=== PATIENT | female | born 1945 | race Caucasian/White ===

== ENCOUNTER 2016-07-25 13:00 | Outpatient (RCR) ==
[2015-06-14 13:41] VITALS: BMI 21.4
--- NOTE | 2016-07-23 16:47 | RS.OPPTEV2 ---
Date of Note: 07/22/16 Visit #: 1 Date of Evaluation: 07/22/16 Payer Source: MEDICARE Date of Onset/Injury/Change in Status: 04/28/16 Treatment Diagnosis: Low back pain, left hip pain History of Condition/Mechanism of Injury:: Patient reports left low back and LE pain for a few months. She is unsure what may have caused pain. States she did work outside several weeks ago when the weather was good, pulling weeds. States that might have bothered her back. Prior Level of Function.....Patient was independent with: ADL's, Self Care, Caregiving, Ambulation/Mobility, Community Integration/Access Functional Limitations: Sleep, Self Care, ADL's, Reaching, Pushing, Pulling, Lifting, Carrying, Standing, Bending, Squatting, Ambulation, Community Access/ Integration Current Subjective/complaints:: Patient reports low back and left hip pain. States she has pain at times down the leg to the knee. Denies any tingling or numbness. She is able to lay on the left side. Reports tenderness and pain at the left anterior hip region. Treatment Side (optional): Left Medical History Medical History: Hypertension, Arthritis (shoulders and hips) Medical History Comments:: Osteoporosis Smoking Status: Current every day smoker Patient's Goals: Her goal is to get relief of left low back and LE pain. Pain Assessment - Pain Description Pain Location: left low back/hip Current Pain Intensity: 5/10 Worst Pain Intensity: 8/10 Functional Outcome Measure Oswestry LBP: 42 - G Codes & Severity Modifier G Codes & Modifier: Mobility current CK. Mobility goal CI Source of G Code score: Oswestry LBP scale Observation - Observation Posture: Forward Head, Rounded Shoulders, Decreased Lumbar Lordosis Gait - Gait Pattern Gait Comments: Patient ambulates independently, without an assistive device. She demonstrates a slow, cautious, antalgic gait, with decreased stance phase on the left LE. - ROM Lumbar Flexion: Hand reach to patellae Lumbar Spine ROM Limitations: Pain Comments: Lumbar extension is functional with reports of increased discomfort in the left Low back region. - Strength Trunk Lateral Flexion: 4 Good Trunk Rotation: 4 Good Comments: Left hip flexion and ER 4/5. All else of left hip 4+ /5. Right LE 5/ 5. - Special Tests SARINA Test: Negative Right, Positive Left SI Joint Compression: Positive Palpation Comments:: Patient reports moderate tenderness with palpation over the left SI joint. Right SI joint with slight tenderness. Reports tenderness over the left lumbar paraspinals and superior gluteal musculature. Demonstrates min-mod increased muscle guarding at the left lumbar paraspinals. Patient reports tenderness over the left ASIS and PSIS. Sensation - Sensation Comments: Patient reports less sensitivity along the left lateral thigh. All else intact. Additional Comments: Additional Comments: SLR on the left 30-35 degrees, right 45-50 degrees. - Treatment Modality: Ultrasound Parameters/Method Applied: X 10 mins @ 1.5 w/cm2 continuous over left lumbar paraspinals and left SI joint. Patient Position: Right Sidelying Interventions - Exercise/Activities/Manual Therapy Exercises/Activities: Patient instructed in HS stretch for left LE. Also advised to avoid bending straight over. Demonstrated golfer's move or squatting while holding onto something, to crab picker something from the floor. Manual Therapy: NA HOME EXERCISE PROGRAM: HS stretch, SKTC, piriformis, isometric hip flexion, isometric hip adduction, and bridging. - Charges Total Direct Minutes: 55 mins Total Treatment Time: 55 mins Procedures billed for this date of service:: JED Omer, [place] Assessment Assessment: Patient presents to therapy with a diagnosis of left sciatica. She reports pain into the left low back and LE. She exhibits tenderness over the left SI joint and general lumbar sacral region. Imbalance in HS flexibility, with left tighter. Left hip flexors and ER exhibit weakness. Positive Special Tests of SARINA's and SI joint compression. She will benefit from modalities to the left lumbosacral and SI joint region to decrease tenderness. She will also benefit from exercises of stretching, strengthening, and muscle energy techniques to address pelvis dysfunction. Patient Education: Education of diagnosis, Body/Joint mechanics, Home Exercise Program, Home Safety, Activity Modification, Education of Plan of Care Rehab Potential: Good Short Term Goals Goal #1: Patient independent and compliant with basic HEP. Goal to be met by: 08/06/16 Goal #2: Left SLR to 40 degrees. Goal to be met by: 08/06/16 Goal #3: Patient to report only minimal tenderness at left SI joint. Goal to be met by: 08/06/16 Assistant Professor Of Life Sciences Goals Goal #1: Pt knows HEP & MET to maintain level of function at D/C. Goal to be met by: 09/01/16 Goal #2: Pt to amb. community distances without gait deviation and minimal pain. Goal to be met by: 09/01/16 Goal #3: Pt able to perform light ADL's and selfcare activities w/o LB or LLE pain. Goal to be met by: 09/01/16 Goal #4: Score on Oswestry LBP scale improved to <19% impairment. Goal to be met by: 09/01/16 Plan - Treatment to be Provided Procedures: Therapeutic Exercises, Therapeutic Activity, Manual Therapy, Patient Education Modalities: Electrical Stimulation, Ultrasound/Phonophoresis, Cryotherapy, Hot Packs - Treatment Plan Frequency: 3 X week Duration: 4 weeks ORDER # VISITS AND/OR THROUGH DATE: 09/01/16 - Treatment Code (1) Low back pain Qualifiers: Chronicity: acute Back pain laterality: left Sciatica presence: with sciatica presence unspecified Qualified Description: Acute left-sided low back pain, with sciatica presence unspecified Qualifier Code(s): ( M54.5) Low back pain (2) Sacroiliac inflammation Comments: M46.1
--- NOTE | 2016-07-24 11:16 | RS.CXNS ---
Date of scheduled appointment: 07/24/16 Type: No Show
--- NOTE | 2016-07-25 16:20 | RS.OPPTDN ---
Subjective Date of Note: 07/25/16 Visit #: 2 Date of Evaluation: 07/22/16 Payer Source: MEDICARE Treatment Diagnosis: Low back pain, left hip pain Current Subjective/complaints:: Patient says she can't tell a difference with her first treatment. She says she is hurting more due to rain. Reports pain to the L low back and hip. She says she has lost her HEP and requests another copy. Pain Assessment - Pain Description Pain Location: left low back/hip Current Pain Intensity: 5/10 - Treatment Modality: Ultrasound Parameters/Method Applied: continuous @ 1.5 w/cm2 x 10 mins to L lumbar paraspinals. Patient Position: Right Sidelying - Heat/Cryotherapy Treatment: Hot Pack (mid to low back and to the L hip in sidelying x 15 mins) Interventions - Exercise/Activities/Manual Therapy Exercises/Activities: Patient receives passive stretching of SKTC, HS, Piriformis, Lower trunk rotation. Patient performs: pillow squeezes, isometric hip flexion/abd x 10. Re-copied exercises that was given at al Total minutes of Exercise: 15 Manual Therapy: NA HOME EXERCISE PROGRAM: HS stretch, SKTC, piriformis, isometric hip flexion, isometric hip adduction, and bridging. - Charges Total Direct Minutes: 25 Total Treatment Time: 45 Procedures billed for this date of service:: hp, u/s, ex Assessment: Patient has pain and tightness to the L low back, which u/s seemed to relieve today. She has mild discomfort during stretches today, but should improve with further treatments. Patient Education: Education of diagnosis, Body/Joint mechanics, Home Exercise Program, Home Safety, Activity Modification, Education of Plan of Care Short Term Goals Goal #1: Patient independent and compliant with basic HEP. Goal to be met by: 08/06/16 Goal #2: Left SLR to 40 degrees. Goal to be met by: 08/06/16 Goal #3: Patient to report only minimal tenderness at left SI joint. Goal to be met by: 08/06/16 Skilled Nursing Goals Goal #1: Pt knows HEP & MET to maintain level of function at D/C. Goal to be met by: 09/01/16 Goal #2: Pt to amb. community distances without gait deviation and minimal pain. Goal to be met by: 09/01/16 Goal #3: Pt able to perform light ADL's and selfcare activities w/o LB or LLE pain. Goal to be met by: 09/01/16 Goal #4: Score on Oswestry LBP scale improved to <19% impairment. Goal to be met by: 09/01/16 Plan PLAN OF CARE EXPIRES ON:: 09/01/16 ORDER # VISITS AND/OR THROUGH DATE: 09/01/16 PLAN: Continue Plan of Care
== END 2016-07-26 ==
PROVIDERS: ATTEND Internal Medicine
DX: M54.32 Sciatica, left side (principal)

== ENCOUNTER 2016-08-15 11:00 | Outpatient (RCR) ==
[2015-06-14 13:41] VITALS: BMI 21.4
--- NOTE | 2016-07-29 14:34 | RS.OPPTDN ---
Subjective Date of Note: 07/29/16 Visit #: 3 Date of Evaluation: 07/22/16 Payer Source: MEDICARE Treatment Diagnosis: Low back pain, left hip pain Current Subjective/complaints:: Patient says she felt sick this morning and nearly cancelled, but also knew her back was bothering her as well. She says treatment seems to be helping. Pain Assessment - Pain Description Pain Location: left low back/hip Current Pain Intensity: 4/10 - Treatment Modality: Ultrasound Parameters/Method Applied: 1.5 w/cm2 continuous x 12 mins Treatment Area: L lumbar paraspinals and SI Patient Position: Right Sidelying - Heat/Cryotherapy Treatment: Hot Pack (L lumbar and SI region in sidelying x 20 mins) Interventions - Exercise/Activities/Manual Therapy Exercises/Activities: Patient performs general trunk stability instead of stretching due to stomach upset. Pillow squeezes, isometric hip abd, isometric hip flexion, bridging 2/10. Total minutes of Exercise: 15 Manual Therapy: NA HOME EXERCISE PROGRAM: HS stretch, SKTC, piriformis, isometric hip flexion, isometric hip adduction, and bridging. - Charges Total Direct Minutes: 25 Total Treatment Time: 45 Procedures billed for this date of service:: hp, u/s, ex Assessment: Patient presents nauseated today. Some tenderness noted with u/s today. She is able to cyndi gentle trunk stability exercises and verbalized feeling better in general and in her back following treatment today. Patient Education: Education of diagnosis, Body/Joint mechanics, Home Exercise Program, Home Safety, Activity Modification, Education of Plan of Care Patient demonstrates compliance with HEP?: Yes Short Term Goals Goal #1: Patient independent and compliant with basic HEP. Goal to be met by: 08/06/16 Progress towards Goal:: Progressing Goal #2: Left SLR to 40 degrees. Goal to be met by: 08/06/16 Progress towards Goal:: Progressing Goal #3: Patient to report only minimal tenderness at left SI joint. Goal to be met by: 08/06/16 Half-Way Goals Goal #1: Pt knows HEP & MET to maintain level of function at D/C. Goal to be met by: 09/01/16 Goal #2: Pt to amb. community distances without gait deviation and minimal pain. Goal to be met by: 09/01/16 Goal #3: Pt able to perform light ADL's and selfcare activities w/o LB or LLE pain. Goal to be met by: 09/01/16 Goal #4: Score on Oswestry LBP scale improved to <19% impairment. Goal to be met by: 09/01/16 Plan PLAN OF CARE EXPIRES ON:: 09/01/16 ORDER # VISITS AND/OR THROUGH DATE: 09/01/16 PLAN: Progress Exercises
--- NOTE | 2016-07-31 16:04 | RS.OPPTDN ---
Subjective Date of Note: 07/31/16 Visit #: 4 Date of Evaluation: 07/22/16 Payer Source: MEDICARE Treatment Diagnosis: Low back pain, left hip pain Current Subjective/complaints:: Patient states she is feeling better today, but c/o L sided hip soreness (pointing to illiopsoas near origin). She said she feels better after her session. Pain Assessment - Pain Description Pain Location: left low back/hip Current Pain Intensity: 10 - Treatment Modality: Ultrasound Parameters/Method Applied: continuous @ 1.5 w/cm2 x 12 mins bilateral lumbar paraspinals Patient Position: Right Sidelying - Heat/Cryotherapy Treatment: Hot Pack (20 mins to the low back and over the L hip in sidelying) Interventions - Exercise/Activities/Manual Therapy Exercises/Activities: Patient receives passive stretching bilaterally of SKTC, Piriformis, Trunk rotation, and HS x 3. She performs general trunk stability of pillow squeezes, bridging, isometric hip flexion/abd 2x10. Total minutes of Exercise: 16 Manual Therapy: NA HOME EXERCISE PROGRAM: HS stretch, SKTC, piriformis, isometric hip flexion, isometric hip adduction, and bridging. - Charges Total Direct Minutes: 26 Total Treatment Time: 41 Procedures billed for this date of service:: hp, u/s, ex Assessment: Patient verbalizes relief that lasts into the next day currently. The pain she describes and indicates is soreness (muscular probably) near the L groin or (proximal) illiopsoas. She is cyndi all therex easier than when she first began PT. Gait into the department is shortened stride and she uses arms for bal and does have difficulty maneuvering for bed mobility. Patient Education: Education of diagnosis, Body/Joint mechanics, Home Exercise Program, Home Safety, Activity Modification, Education of Plan of Care Patient demonstrates compliance with HEP?: Yes Short Term Goals Goal #1: Patient independent and compliant with basic HEP. Goal to be met by: 08/06/16 Progress towards Goal:: Progressing Goal #2: Left SLR to 40 degrees. Goal to be met by: 08/06/16 Progress towards Goal:: Progressing Goal #3: Patient to report only minimal tenderness at left SI joint. Goal to be met by: 08/06/16 [employer] Operator Goals Goal #1: Pt knows HEP & MET to maintain level of function at D/C. Goal to be met by: 09/01/16 Goal #2: Pt to amb. community distances without gait deviation and minimal pain. Goal to be met by: 09/01/16 Goal #3: Pt able to perform light ADL's and selfcare activities w/o LB or LLE pain. Goal to be met by: 09/01/16 Goal #4: Score on Oswestry LBP scale improved to <19% impairment. Goal to be met by: 09/01/16 Plan PLAN OF CARE EXPIRES ON:: 09/01/16 ORDER # VISITS AND/OR THROUGH DATE: 09/01/16 PLAN: Progress Exercises
--- NOTE | 2016-08-02 16:11 | RS.OPPTDN ---
Subjective Date of Note: 08/02/16 Visit #: 5 Date of Evaluation: 07/22/16 Payer Source: MEDICARE Treatment Diagnosis: Low back pain, left hip pain Current Subjective/complaints:: Patient says her stomach has been upset and therefore has not been able to sleep well. Reports her back is feeling better though. States her hip is less tender as well. Pain Assessment - Pain Description Pain Location: left low back/hip Current Pain Intensity: 3/10 - Treatment Modality: Ultrasound Parameters/Method Applied: continuous @ 1.5 w/cm2 x 12 mins to the L lumbar paraspinals and SI region Patient Position: Right Sidelying - Heat/Cryotherapy Treatment: Hot Pack (20 mins to the mid to low back in R sidelying) Interventions - Exercise/Activities/Manual Therapy Exercises/Activities: Patient receives passive stretching bilaterally of SKTC, Piriformis, Trunk rotation, and HS x 3. She performs general trunk stability of pillow squeezes, bridging, isometric hip flexion/abd, SLR 2x10. Total minutes of Exercise: 20 Manual Therapy: NA HOME EXERCISE PROGRAM: HS stretch, SKTC, piriformis, isometric hip flexion, isometric hip adduction, and bridging. - Charges Total Direct Minutes: 32 Total Treatment Time: 52 Procedures billed for this date of service:: hp, u/s, ex Assessment: Patient progressing with reduced back pain and improved cyndi to increased stretching and stability. Patient Education: Education of diagnosis, Body/Joint mechanics, Home Exercise Program, Home Safety, Activity Modification, Education of Plan of Care Patient demonstrates compliance with HEP?: Yes Short Term Goals Goal #1: Patient independent and compliant with basic HEP. Goal to be met by: 08/06/16 Progress towards Goal:: Progressing Goal #2: Left SLR to 40 degrees. Goal to be met by: 08/06/16 Progress towards Goal:: Progressing Goal #3: Patient to report only minimal tenderness at left SI joint. Goal to be met by: 08/06/16 [facility] Goals Goal #1: Pt knows HEP & MET to maintain level of function at D/C. Goal to be met by: 09/01/16 Goal #2: Pt to amb. community distances without gait deviation and minimal pain. Goal to be met by: 09/01/16 Goal #3: Pt able to perform light ADL's and selfcare activities w/o LB or LLE pain. Goal to be met by: 09/01/16 Goal #4: Score on Oswestry LBP scale improved to <19% impairment. Goal to be met by: 09/01/16 Plan PLAN OF CARE EXPIRES ON:: 09/01/16 ORDER # VISITS AND/OR THROUGH DATE: 09/01/16 PLAN: Progress Exercises
--- NOTE | 2016-08-05 14:26 | RS.OPPTDN ---
Subjective Date of Note: 08/05/16 Visit #: 6 Date of Evaluation: 07/22/16 Payer Source: MEDICARE Treatment Diagnosis: Low back pain, left hip pain Current Subjective/complaints:: Patient says her pain is more today. She says she is hurting when she walks. Reports she had to walk around and be in her yard a lot over the weekend due to showing someone how and where to mow her yard. She also c/o R shoulder pain in which she verbalizes history of as well as limited motion. Pain Assessment - Pain Description Pain Location: left low back/hip Current Pain Intensity: elevated today - Treatment Modality: Ultrasound Parameters/Method Applied: continuous @ 1.5 w/cm2 x 12 mins to the L lumbar paraspinals and into the hip and SI region Patient Position: Right Sidelying - Heat/Cryotherapy Treatment: Hot Pack (over the low back and hip in sidelying) Interventions - Exercise/Activities/Manual Therapy Exercises/Activities: Patient receives passive stretching bilaterally of SKTC, Piriformis, Trunk rotation, and HS x 4. She performs general trunk stability of pillow squeezes, bridging, isometric hip flexion/abd, SLR 2x10. Total minutes of Exercise: 22 Manual Therapy: NA HOME EXERCISE PROGRAM: HS stretch, SKTC, piriformis, isometric hip flexion, isometric hip adduction, and bridging. - Charges Total Direct Minutes: 34 Total Treatment Time: 54 Procedures billed for this date of service:: hp, u/s, ex Assessment: Patient expresses her pain was already relieved significantly once u /s was completed and she was mid way through stretching. She appears to ambulate with increased stride length to the L LE. Patient Education: Education of diagnosis, Body/Joint mechanics, Home Exercise Program, Home Safety, Activity Modification, Education of Plan of Care Patient demonstrates compliance with HEP?: Yes Short Term Goals Goal #1: Patient independent and compliant with basic HEP. Goal to be met by: 08/06/16 Progress towards Goal:: Progressing Goal #2: Left SLR to 40 degrees. Goal to be met by: 08/06/16 Progress towards Goal:: Progressing Goal #3: Patient to report only minimal tenderness at left SI joint. Goal to be met by: 08/06/16 Longterm Goals Goal #1: Pt knows HEP & MET to maintain level of function at D/C. Goal to be met by: 09/01/16 Goal #2: Pt to amb. community distances without gait deviation and minimal pain. Goal to be met by: 09/01/16 Goal #3: Pt able to perform light ADL's and selfcare activities w/o LB or LLE pain. Goal to be met by: 09/01/16 Goal #4: Score on Oswestry LBP scale improved to <19% impairment. Goal to be met by: 09/01/16 Plan PLAN OF CARE EXPIRES ON:: 09/01/16 ORDER # VISITS AND/OR THROUGH DATE: 09/01/16 PLAN: Progress Exercises
--- NOTE | 2016-08-07 15:34 | RS.OPPTDN ---
Subjective Date of Note: 08/07/16 Visit #: 7 Date of Evaluation: 07/22/16 Payer Source: MEDICARE Treatment Diagnosis: Low back pain, left hip pain Current Subjective/complaints:: Patient says she has elevated pain today. Reports L hip pain with ambulation and standing. She says she thinks she will have this pain forever. Pain Assessment - Pain Description Pain Location: left low back/hip Current Pain Intensity: elevated today - Treatment Modality: Ultrasound Parameters/Method Applied: continuous @ 1.5 w/cm2 x 12 mins to the L lumbar paraspinals and L hip Patient Position: Right Sidelying - Heat/Cryotherapy Treatment: Hot Pack (low back and over the L hip in sidelying x 20) Interventions - Exercise/Activities/Manual Therapy Exercises/Activities: Patient receives passive stretching bilaterally of SKTC, Piriformis, Trunk rotation, and HS x 4. She performs general trunk stability of pillow squeezes, bridging, isometric hip flexion/abd, QS, SLR 2x10. Total minutes of Exercise: 22 Manual Therapy: NA HOME EXERCISE PROGRAM: HS stretch, SKTC, piriformis, isometric hip flexion, isometric hip adduction, and bridging. - Charges Total Direct Minutes: 34 Total Treatment Time: 49 Procedures billed for this date of service:: hp, u/s, ex Assessment: Patient with slower, guarded gait today related to increased L hip pain. She admits relief (temporary) with treatment today. She is discouraged about her chronic pain and that relief is not lasting very long. Patient Education: Education of diagnosis, Body/Joint mechanics, Home Exercise Program, Home Safety, Activity Modification, Education of Plan of Care Patient demonstrates compliance with HEP?: Yes Short Term Goals Goal #1: Patient independent and compliant with basic HEP. Goal to be met by: 08/06/16 Progress towards Goal:: Progressing Goal #2: Left SLR to 40 degrees. Goal to be met by: 08/06/16 Progress towards Goal:: Progressing Goal #3: Patient to report only minimal tenderness at left SI joint. Goal to be met by: 08/06/16 Wound/Ostomy Clinical Nurse Specialist Goals Goal #1: Pt knows HEP & MET to maintain level of function at D/C. Goal to be met by: 09/01/16 Goal #2: Pt to amb. community distances without gait deviation and minimal pain. Goal to be met by: 09/01/16 Goal #3: Pt able to perform light ADL's and selfcare activities w/o LB or LLE pain. Goal to be met by: 09/01/16 Goal #4: Score on Oswestry LBP scale improved to <19% impairment. Goal to be met by: 09/01/16 Plan PLAN OF CARE EXPIRES ON:: 09/01/16 ORDER # VISITS AND/OR THROUGH DATE: 09/01/16 PLAN: Progress Exercises (may modify treatment to estim)
--- NOTE | 2016-08-09 15:31 | RS.OPPTDN ---
Subjective Date of Note: 08/09/16 Visit #: 8 Date of Evaluation: 07/22/16 Payer Source: MEDICARE Treatment Diagnosis: Low back pain, left hip pain Current Subjective/complaints:: Patient says her L hip is not bothering her as much as it usually does. She says she is able to walk better than norm too. She expresses concern about fixing Easter lunch (being on her feet and cooking for family). C/c R shoulder pain. Pain Assessment - Pain Description Pain Location: left low back/hip Current Pain Intensity: less today - Treatment Modality: Ultrasound Parameters/Method Applied: continuous @ 1.5 w/cm2 x 8 mins to the L lumbar paraspinals and hip Patient Position: Supine - Heat/Cryotherapy Treatment: Hot Pack (mid to low back in supine to spare shoulder pain) Interventions - Exercise/Activities/Manual Therapy Exercises/Activities: Patient receives passive stretching bilaterally of SKTC, Piriformis, Trunk rotation, and HS x 4. She performs general trunk stability of pillow squeezes, bridging, isometric hip flexion/abd, QS, SLR 2x10. Total minutes of Exercise: 22 Manual Therapy: NA HOME EXERCISE PROGRAM: HS stretch, SKTC, piriformis, isometric hip flexion, isometric hip adduction, and bridging. - Charges Total Direct Minutes: 30 Total Treatment Time: 50 Procedures billed for this date of service:: hp, u/s, ex Assessment: Reduced L sided back and hip pain today thus, presenting with improved ambulation and longer stride length for the L LE. C/c at this point is R shoulder pain. Patient Education: Education of diagnosis, Body/Joint mechanics, Home Exercise Program, Home Safety, Activity Modification, Education of Plan of Care Patient demonstrates compliance with HEP?: Yes Short Term Goals Goal #1: Patient independent and compliant with basic HEP. Goal to be met by: 08/06/16 Progress towards Goal:: Progressing Goal #2: Left SLR to 40 degrees. Goal to be met by: 08/06/16 Progress towards Goal:: Progressing Goal #3: Patient to report only minimal tenderness at left SI joint. Goal to be met by: 08/06/16 Personal Trainer Goals Goal #1: Pt knows HEP & MET to maintain level of function at D/C. Goal to be met by: 09/01/16 Goal #2: Pt to amb. community distances without gait deviation and minimal pain. Goal to be met by: 09/01/16 Goal #3: Pt able to perform light ADL's and selfcare activities w/o LB or LLE pain. Goal to be met by: 09/01/16 Goal #4: Score on Oswestry LBP scale improved to <19% impairment. Goal to be met by: 09/01/16 Plan PLAN OF CARE EXPIRES ON:: 09/01/16 ORDER # VISITS AND/OR THROUGH DATE: 09/01/16 PLAN: Progress Exercises (continue x 2 more sessions)
--- NOTE | 2016-08-13 15:53 | RS.OPPTDN ---
Subjective Date of Note: 08/13/16 Visit #: 9 Date of Evaluation: 07/22/16 Payer Source: MEDICARE Treatment Diagnosis: Low back pain, left hip pain Current Subjective/complaints:: Patient says most of her problems now are dizziness. She says her hip and back pain is not too bad. Says it was a problem though with meal prep for Easter. She said she did not have help from family as she anticipated, so her back pain was elevated. Pain Assessment - Pain Description Pain Location: left low back/hip Current Pain Intensity: less today - Treatment Modality: Ultrasound Parameters/Method Applied: continuous @ 1.5 w/cm2 x 10 mins to the L lumbar paraspinals and SI Patient Position: Right Sidelying - Heat/Cryotherapy Treatment: Hot Pack (over the low back and L hip in sidelying x 20 mins) Interventions - Exercise/Activities/Manual Therapy Exercises/Activities: Patient receives passive stretching bilaterally of SKTC, Piriformis, Trunk rotation, and HS x 4. She continues to perform general trunk stability of pillow squeezes, bridging, isometric hip flexion/abd, QS, SLR 2x10. Total minutes of Exercise: 16 Manual Therapy: NA HOME EXERCISE PROGRAM: HS stretch, SKTC, piriformis, isometric hip flexion, isometric hip adduction, and bridging. - Charges Total Direct Minutes: 26 Total Treatment Time: 46 Procedures billed for this date of service:: hp, u/s, ex Assessment: Improved flexibility and back and hip pain. She still has trouble with cyndi prolonged standing and had elevated pain with meal prep. Patient Education: Education of diagnosis, Body/Joint mechanics, Home Exercise Program, Home Safety, Activity Modification, Education of Plan of Care Patient demonstrates compliance with HEP?: Yes Short Term Goals Goal #1: Patient independent and compliant with basic HEP. Goal to be met by: 08/06/16 Progress towards Goal:: Progressing Goal #2: Left SLR to 40 degrees. Goal to be met by: 08/06/16 Progress towards Goal:: Met Goal #3: Patient to report only minimal tenderness at left SI joint. Goal to be met by: 08/06/16 Progress towards Goal:: Met Group Home Goals Goal #1: Pt knows HEP & MET to maintain level of function at D/C. Goal to be met by: 09/01/16 Progress towards goal: Progressing Goal #2: Pt to amb. community distances without gait deviation and minimal pain. Goal to be met by: 09/01/16 Progress towards goal: Progressing Goal #3: Pt able to perform light ADL's and selfcare activities w/o LB or LLE pain. Goal to be met by: 09/01/16 Progress towards goal: Progressing Goal #4: Score on Oswestry LBP scale improved to <19% impairment. Goal to be met by: 09/01/16 Plan PLAN OF CARE EXPIRES ON:: 09/01/16 ORDER # VISITS AND/OR THROUGH DATE: 09/01/16 PLAN: Progress Exercises
--- NOTE | 2016-08-16 15:31 | RS.OPPTDC ---
Date of Discharge: 08/15/16 Date of Evaluation: 07/22/16 Number of Visits: 10 Treatment Diagnosis: Low back pain, left hip pain Current Complaints/Gains: Patient reports right shoulder is her chief complaint at this time. States back pain is much better, except with increased activities. States preparing Easter meal recently caused increased back pain. Reports improved strength in LE's. She returns to her physician on August 26. Functional Outcome Measure Oswestry LBP: 4 - G Codes & Severity Modifier G Codes & Modifier: Mobility D/C CI. Mobility goal CI Source of G Code score: Oswestry LBP Interventions - Exercise/Activities/Manual Therapy Exercises/Activities: NA Manual Therapy: NA HOME EXERCISE PROGRAM: HS stretch, SKTC, piriformis, isometric hip flexion, isometric hip adduction, and bridging. - Objective Findings Observations,measurements,etc.: Patient demonstrates improved left HS flexibilty , but remains tighter than right. Demonstrates continues to present short stride length, but this has improved somewhat since her first visit. - Charges Total Direct Minutes: NA Total Treatment Time: NA Procedures billed for this date of service:: NA Assessment Assessment: Patient reports improved back pain unless increased activity. She demonstrates improvement per Oswestry LBP scale. She shows improvement with LE flexibility. She agrees she probably has met her maximum potential at this time. She understands to continue with exercises at home. Short Term Goals Goal #1: Patient independent and compliant with basic HEP. Goal to be met by: 08/06/16 Progress towards Goal:: Met Goal #2: Left SLR to 40 degrees. Goal to be met by: 08/06/16 Progress towards Goal:: Met Goal #3: Patient to report only minimal tenderness at left SI joint. Goal to be met by: 08/06/16 Progress towards Goal:: Met Longterm Goals Goal #1: Pt knows HEP & MET to maintain level of function at D/C. Goal to be met by: 09/01/16 Progress towards goal: Met Goal #2: Pt to amb. community distances without gait deviation and minimal pain. Goal to be met by: 09/01/16 Progress towards goal: Partially Met Goal #3: Pt able to perform light ADL's and selfcare activities w/o LB or LLE pain. Goal to be met by: 09/01/16 Progress towards goal: Partially Met Goal #4: Score on Oswestry LBP scale improved to <19% impairment. Goal to be met by: 09/01/16 Progress towards goal: Met Plan Reason for Discharge:: Maximum Potential Met
== END 2016-08-25 ==
PROVIDERS: ATTEND Internal Medicine
DX: M54.32 Sciatica, left side (principal)

== ENCOUNTER 2016-09-16 10:02 | Outpatient (CLI) ==
[2015-06-14 13:41] VITALS: BMI 21.4
[2016-09-16 10:14] VITALS: BP 126/70; TEMP 97.7
[2016-09-16] MEDS ORDERED: PROLIA SUBCUT STA (10:14)
== END 2016-09-16 10:03 | disposition home or self-care (01) ==
LOC: OPMED 10:02
PROVIDERS: ATTEND Internal Medicine
DX: M81.0 Age-related osteoporosis without current pathological fracture (principal)
CPT/HCPCS: 96372

== ENCOUNTER 2017-03-25 09:19 | Outpatient (CLI) ==
[2015-06-14 13:41] VITALS: BMI 21.4
[2017-03-25 10:21] LABS: CREATININE 0.97 mg/dL (0.60-1.30)
[2017-03-25 10:26] VITALS: BP 134/72; TEMP 98.6
[2017-03-25] MEDS ORDERED: PROLIA SUBCUT STA (10:26)
--- NOTE | 2017-03-25 13:12 | MRI ---
EXAM: MRI brain without and with IV contrast. DATE: 25 March 2017. HISTORY: Dizziness. TECHNIQUE: Sagittal T1W postcontrast, axial T2W, axial FLAIR, axial T1W pre and postcontrast, axial DWI, coronal T1W postcontrast, and coronal T2W GRE sequences of the brain were obtained using 1.5 Caitlin la magnet. CONTRAST: Omniscan - 10 ml IV. COMPARISON: CT head 06/14/2015. MRI brain 28 November 2014. FINDINGS: The ventricles, cisterns, and sulci are commensurately enlarged due to involutional change . No midline shift, mass effect or abnormal extra-axial fluid collection is apparent. No acute infa rct, hemorrhage or enhancing neoplasm is identified. No abnormal contrast enhancement is identified in the brain, meninges or dura. Small, confluent rim of T2W/FLAIR hyperintensity is observed in the white matter abutting each lateral ventricle. Small number of 2-8 mm diameter, T2W/FLAIR bright, non -enhancing foci are scattered within the major radiata, centrum semiovale and subcortical white ana er bilaterally. The harrell - white matter differentiation is normal. No brainstem abnormality is dete cted. No migration or diverticulation abnormality is identified. The amygdala, hippocampus, and par ahippocampal gyri are similar bilaterally. The 7th/8th cranial nerve complexes, cerebellopontine ang les, and visible cervical spinal cord are normal. There is no cerebellar tonsillar ectopia. The pit uitary gland is normal in size and signal. Corpus callosum is normal in size and configuration. Jaun w voids are present in the major intracranial arteries and in the dural venous sinuses. No aneurysm, AVM or dural venous sinus thrombosis is apparent. No orbit abnormality is identified. The mastoid air cells are unremarkable. There is no acute sinusitis. No neck mass or lymphadenopathy is detecte d. No calvarial neoplasm or acute fracture is evident. Posterior disc/osteophyte complexes at C3-4 and C4-5 appear to cause mild C3-4 and moderate C4-5 central canal stenoses. IMPRESSIONS: 1. No acute infarct, hemorrhage, mass or hydrocephalus. 2. Mild supratentorial small vessel disease. 3. Mild cerebral and cerebellar atrophy.
--- NOTE | 2017-03-25 13:22 | US ---
EXAM: Bilateral carotid artery Doppler History: Dizziness. Technique: Multiple sonographic images through the bilateral internal carotid arteries were obtained . Color duplex Doppler was used to interrogate vascular flow. Findings: The right ICA peak systolic velocity is within normal limits measuring month 1.2 cm/sec. The right I CA/cca PSV ratio is normal at 1.7. The right vertebral artery is patent and demonstrates antegrade f low. Munguia scale images demonstrate mild to moderate plaque buildup within the right internal carotid artery. The left ICA peak systolic velocity is moderately elevated measuring 1.4 meters per second. The left ICA/cca PSV ratio is moderately increased at 2.1. The left vertebral artery is patent and demonstrat es antegrade flow. Munguia scale images demonstrate moderate plaque buildup within the proximal left in ternal carotid artery. Impression: 1. No significant hemodynamic stenosis of the right internal carotid artery. 2. Moderate, 50-69% hemodynamic stenosis of the left internal carotid artery
== END 2017-03-25 09:20 | disposition home or self-care (01) ==
LOC: OPMED 09:19
PROVIDERS: ATTEND Internal Medicine
DX: M81.0 Age-related osteoporosis without current pathological fracture (principal); R42 Dizziness and giddiness; R26.81 Unsteadiness on feet
CPT/HCPCS: 36415; 82565; 96372

== ENCOUNTER → 2017-04-02 | Outpatient (POV) ==
[2015-06-14 13:41] VITALS: BMI 21.4
== END ==
LOC: OUTPT 00:01
PROVIDERS: ATTEND Otolaryngology
DX: R42 Dizziness and giddiness (principal); H91.90 Unspecified hearing loss, unspecified ear
CPT/HCPCS: 92557; 92567

== ENCOUNTER 2017-09-23 11:00 | Outpatient (RCR) ==
[2015-06-14 13:41] VITALS: BMI 21.4
--- NOTE | 2017-09-09 08:59 | RS.OPPTEV2 ---
Date of Note: 09/08/17 Visit #: 1 Date of Evaluation: 09/08/17 Payer Source: MEDICARE Treatment Diagnosis: Right low back pain/sciatica, gait difficulty History of Condition/Mechanism of Injury:: Patient reports right hip/low back pain for 1-2 months. States she has had no injury. Reports difficulty with walking and balance has been progressively getting worse. States she spends a lot of time laying down because she has no energy. Prior Level of Function.....Patient was independent with: ADL's, Self Care, Caregiving, Ambulation/Mobility, Community Integration/Access Functional Limitations: Sleep, Self Care, ADL's, Reaching, Pushing, Pulling, Lifting, Carrying, Standing, Bending, Squatting, Ambulation, Community Access/ Integration Current Subjective/complaints:: Patient reports right sided hip/low back pain. States sitting very long causes increased pain and she has to reposition herself. Also reports right low back pain with prolonged standing and walking. States her sleep is interrupted at night due to having to change positions frequently. She gets some decrease in pain with use of heat. Reports she has a cane and a rollator at home, but states she does not use them. States she holds onto furniture or dominguez when she walks in her home. States she has had no falls. She denies dizziness, but later during the evaluation she reports dizziness with testing balance. She states she has medication for Vertigo, but states she does not take it. Reports her back pain and walking is worse later in the day and evening. Medical History Medical History: Hypertension, Arthritis (shoulders and hips) Medical History Comments:: Osteoporosis, Primary Biliary Cirrhosis Smoking Status: Current every day smoker Hx Home Medications: Medication list not provided, states she takes medication for acid reflux, thyroid, and liver. Recently started a Z pack. Patient's Goals: Her goal is to get reduction in right hip/low back pain and also improve her balance. Pain Assessment - Pain Description Pain Location: right low back/SI/hip Pain Description: "Like a toothache" Current Pain Intensity: 6/10 Worst Pain Intensity: 10/10 Functional Outcome Measure Oswestry LBP: 54 Tinetti: 12 (04/24=57% impairment) - G Codes & Severity Modifier G Codes & Modifier: Mobility current CK. Mobility goal CI Source of G Code score: Oswestry LBP scale and Tinetti Assessment Observation - Observation Inspection: Patient presents to the department holding onto to the arm of her daughter. Bilateral lower legs and ankles are much cooler to the touch and demonstrate slightly darker appearance compared to other exposed areas of the body. Posture: Forward Head, Rounded Shoulders, Decreased Lumbar Lordosis Gait - Gait Pattern Gait Comments: Patient ambulates without an assistive device. She requires CATERING ADMINISTRATIVE ASSISTANT of one for safety. She exhibits moderate deviation from a straight path, decreased stance phase on the right LE and decreased stride of the right LE. Once into the treatment room, Ms. Nunez reaches for the wall and the treatment table to steady her. Patient demonstrates transfers to/from sitting independent , unless from a lower surface. She requires minimal assistance transferring sit to stand from a low surface. - ROM Lumbar Flexion: Hand reach to Mid-Shins Sidebending to Left: Reach to Lateral Joint Line Sidebending to Right: Reach to Lateral Joint Line Comments: Patient requires hands on assistance to perform lumbar ROM due to balance difficulty. She reports no increase in back pain with AROM. Bilateral LE AROM is WFL's. - Strength Trunk Lateral Flexion: 4- Good- Trunk Rotation: 4- Good- Comments: Bilateral hip strength 4/5, knees 4/5, ankles 4 to 4+/5. - Special Tests SARINA Test: Positive Left SLR Test: Negative Left, Negative Right Seated Dural Stretch Test: Negative Left, Negative Right SI Joint Compression: Positive Palpation Comments:: Patient reports tenderness over the right SI joint and lumbar paraspinals. Demonstrates no significant muscle guarding along the lumbar paraspinals. Sensation - Sensation Comments: Reports lower legs feel a little numb, but has difficulty explaining exact areas of numbness. Balance - Sitting Balance Static Sitting Balance: Good Dynamic Sitting Balance: Good - Standing Balance Static Standing Balance: Fair Dynamic Standing Balance: Fair (-) - Comments Balance Assessment Comments: Patient demonstrates decreased balance and reports of dizziness with static standing with eyes closed for a ~ 5 seconds. Also demonstrates decreased dynamic balance and reports dizziness with turning 360 degrees with CATERING ADMINISTRATIVE ASSISTANT. Coordination - Tests Bilateral Heel to Villarreal: Mild Deviation Additional Comments: Additional Comments: Bilateral HS are very tight: both SLR to 30-35 degrees. - Treatment Modality: Ultrasound Parameters/Method Applied: 1.5 w/cm2 X 10 mins continuous to right lumbar paraspinals and Right SI joint region. Patient Position: Left Sidelying Interventions - Exercise/Activities/Manual Therapy Exercises/Activities: NA Manual Therapy: NA HOME EXERCISE PROGRAM: None given today. - Charges Timed Code Treatment Minutes: 10 mins Total Treatment Time: 48 mins Procedures billed for this date of service:: JED [facility], EVALUATION COMPLEXITY LEVEL EVALUATION COMPLEXITY LEVEL: HISTORY: Medium (History of back pian, Primary Biliary Cirrhosis,HTN, OA), EXAM OF BODY SYSTEMS: Medium (Addressed sensation, LE ROM and strength, balance, coordination), CLINICAL PRESENTATION: Medium ( Evolving), CLINICAL DECISION MAKING: Medium Assessment Assessment: Patient presents to therapy with a diagnosis of right low back pain/ sciatica, and gait difficulty. She reports right sided low back pain with prolonged sitting, standing, and walking. She exhibits marked limitation of bilateral hamstring flexibility. She presents to be a High fall risk per Tinetti Assessment. LE strength, standing static, and standing dynamic balance are impaired. She demonstrates good potential to benefit from stretching and modalities to reduce low back pain. She also demonstrates potential to benefit from trunk and LE strengthening, along with neuromuscular activities, to improve her balance and decrease her risk for falls. Patient Education: Education of diagnosis, Body/Joint mechanics, Home Exercise Program, Home Safety, Activity Modification, Education of Plan of Care Rehab Potential: Good Short Term Goals Goal #1: Patient independent and compliant with basic HEP. Goal to be met by: 09/22/17 Goal #2: Bilateral SLR to 40 degrees. Goal to be met by: 09/22/17 Goal #3: Patient to report only minimal tenderness at right SI joint. Goal to be met by: 09/22/17 Goal #4: Pt to amb. with AAD, with good safety in department. Goal to be met by: 09/22/17 Snf Goals Goal #1: Pt knows HEP and to continue ex's to maintain functional level at D/C. Goal to be met by: 10/14/17 Goal #2: Score on Tinetti Assessment improved to , to show decreased fall risk. Goal to be met by: 10/14/17 Goal #3: Pt able to amb. community distances w/ AAD and with minimal right hip/ LBP. Goal to be met by: 10/14/17 Goal #4: Score on Oswestry LBP scale improved to <19% impairment. Goal to be met by: 10/14/17 Plan - Treatment to be Provided Procedures: Therapeutic Exercises, Therapeutic Activity, Gait Training, Neuromuscular Rehab, Manual Therapy, Patient Education Modalities: Electrical Stimulation, Ultrasound/Phonophoresis, Cryotherapy, Hot Packs - Treatment Plan Frequency: 2-3x week Duration: 4 weeks ORDER # VISITS AND/OR THROUGH DATE: 10/14/17 - Treatment Code (1) Low back pain Code(s): M54.5 - LOW BACK PAIN Qualifiers: Chronicity: acute Back pain laterality: right Sciatica presence: unspecified whether sciatica present Qualified Code(s): M54.5 - Low back pain (2) Gait difficulty Code(s): R26.9 - UNSPECIFIED ABNORMALITIES OF GAIT AND MOBILITY Comments: R26.9
--- NOTE | 2017-09-10 11:49 | RS.CXNS ---
Date of scheduled appointment: 09/10/17 Type: No Show
--- NOTE | 2017-09-12 14:55 | RS.OPPTDN ---
Subjective Date of Note: 09/12/17 Visit #: 2 Date of Evaluation: 09/08/17 Payer Source: MEDICARE Treatment Diagnosis: Right low back pain/sciatica, gait difficulty Current Subjective/complaints:: Patient C/o dizziness today. She says she is taking medication for Vertigo and does question whether her vision difficulty could be causing her dizziness. Pain Assessment - Pain Description Pain Location: sore to the R LB and SI region - Treatment Modality: Ultrasound Parameters/Method Applied: continuous @ 1.5 w/cm2 x 10 mins to the R lumbar paraspinals and SI joint Patient Position: Left Sidelying - Heat/Cryotherapy Treatment: Hot Pack (over the low back and R SI joint) Interventions - Exercise/Activities/Manual Therapy Exercises/Activities: Pt begins with passive stretching of SKTC, piriformis, fig 4, and hamstrings R LE x 4. Patient begins pillow squeezes, isometric hip flexion/abd, bridging, x 10 reps. Sitting at EOB: shoulder shrugs and scap retraction for posture x 10. Patient stands at railing for: side stepping, marching, x 10. Patient amb around the dept with SC with education of proper use and appropriate side. Adjusted cane to better height. Total minutes of Exercise: 22 Manual Therapy: NA HOME EXERCISE PROGRAM: None given today. - Charges Timed Code Treatment Minutes: 32 Total Treatment Time: 47 Procedures billed for this date of service:: hp, u/s, ex Assessment: Patient c/o dizziness today which remains fairly constant throughout changing positions and slightly with standing in our dept. She is assisted to/from waiting room and then later after appt to her car via w/c. She often reaches out to touch bed, wall, but is unsure of using SC and needs assistance with using it and appropriate side. Patient Education: Education of diagnosis, Body/Joint mechanics, Home Exercise Program, Home Safety, Education of Plan of Care Short Term Goals Goal #1: Patient independent and compliant with basic HEP. Goal to be met by: 09/22/17 Progress towards Goal:: Progressing Goal #2: Bilateral SLR to 40 degrees. Goal to be met by: 09/22/17 Goal #3: Patient to report only minimal tenderness at right SI joint. Goal to be met by: 09/22/17 Goal #4: Pt to amb. with AAD, with good safety in department. Goal to be met by: 09/22/17 Snf Goals Goal #1: Pt knows HEP and to continue ex's to maintain functional level at D/C. Goal to be met by: 10/14/17 Goal #2: Score on Tinetti Assessment improved to , to show decreased fall risk. Goal to be met by: 10/14/17 Goal #3: Pt able to amb. community distances w/ AAD and with minimal right hip/ LBP. Goal to be met by: 10/14/17 Goal #4: Score on Oswestry LBP scale improved to <19% impairment. Goal to be met by: 10/14/17 Plan PLAN OF CARE EXPIRES ON:: 10/14/17 ORDER # VISITS AND/OR THROUGH DATE: 10/14/17 PLAN: Patient to continue BIW for therex and modalities for back pain and bal
--- NOTE | 2017-09-16 13:29 | RS.OPPTDN ---
Subjective Date of Note: 09/16/17 Visit #: 3 Date of Evaluation: 09/08/17 Payer Source: MEDICARE Treatment Diagnosis: Right low back pain/sciatica, gait difficulty Current Subjective/complaints:: Patient continues to c/o dizziness. She says this has not improved with therapy yet, but did let her know she has only had 1 treatment. - Treatment Modality: Ultrasound Parameters/Method Applied: continuous @ 1.5 w/cm2 x 10 mins to the R lower lumbar paraspinals and SI joint Patient Position: Left Sidelying - Heat/Cryotherapy Treatment: Hot Pack (20 mins to the low back and across the R SI/hip in sidelying) Interventions - Exercise/Activities/Manual Therapy Exercises/Activities: Pt begins with passive stretching of SKTC, piriformis, fig 4, and hamstrings R LE x 4. Patient continues pillow squeezes, isometric hip flexion/abd, bridging, x 10 reps. Sitting at EOB: shoulder shrugs and scap retraction for posture x 10. SLR x 10 reps. Avoided standing therex due to patient saying she has not taken any of her medication today including vertigo and feeling increased unsteadiness today. Discussion about taking her meds consistently, using her SC at home and in community for safety and working on HeP. Patient was transported back to rehab room and to her car via w/c based on her c/o's. Discussed her diagnosis and POC in case we need to modify treatment from u/s to estim. Total minutes of Exercise: 22 Manual Therapy: NA HOME EXERCISE PROGRAM: None given today. - Charges Timed Code Treatment Minutes: 32 Total Treatment Time: 48 Procedures billed for this date of service:: hp, u/s, ex Assessment: Patient experiencing more unsteadiness and dizziness today. Admits that PT does not seem to be helping as she is being wheeled back in w/c. Although, later patient admits to not taking her morning medication including for dizziness and not using her cane at home. She also adds at the end of session, that her back pain is much better and can get into her car with improved ease. Patient Education: Education of diagnosis, Home Exercise Program, Home Safety, Education of Plan of Care Patient demonstrates compliance with HEP?: Yes (needs to be more consistent) Short Term Goals Goal #1: Patient independent and compliant with basic HEP. Goal to be met by: 09/22/17 Progress towards Goal:: Progressing Goal #2: Bilateral SLR to 40 degrees. Goal to be met by: 09/22/17 Progress towards Goal:: Progressing Comments:: HS length is improving Goal #3: Patient to report only minimal tenderness at right SI joint. Goal to be met by: 09/22/17 Comments:: Patient continues to be tender at the lower lumbar R paraspinals Goal #4: Pt to amb. with AAD, with good safety in department. Goal to be met by: 09/22/17 Progress towards Goal:: No Change (patient has been using w/c for transport to our dept due to increased dizziness) Intermediate Goals Goal #1: Pt knows HEP and to continue ex's to maintain functional level at D/C. Goal to be met by: 10/14/17 Progress towards goal: Progressing Goal #2: Score on Tinetti Assessment improved to 20/28, to show decreased fall risk. Goal to be met by: 10/14/17 Goal #3: Pt able to amb. community distances w/ AAD and with minimal right hip/ LBP. Goal to be met by: 10/14/17 Goal #4: Score on Oswestry LBP scale improved to <19% impairment. Goal to be met by: 10/14/17 Plan PLAN OF CARE EXPIRES ON:: 10/14/17 ORDER # VISITS AND/OR THROUGH DATE: 10/14/17 PLAN: Patient to continue BIW for advancement to therex if able
--- NOTE | 2017-09-19 11:04 | RS.CXNS ---
Date of scheduled appointment: 09/19/17 Type: Cancel Reason for Cancel/NS: sick
--- NOTE | 2017-09-23 13:25 | RS.OPPTDN ---
Subjective Date of Note: 09/23/17 Visit #: 4 Date of Evaluation: 09/08/17 Payer Source: MEDICARE Treatment Diagnosis: Right low back pain/sciatica, gait difficulty Current Subjective/complaints:: Patient says she continues to have problems with dizziness and says it seems to be worse. Reports she wants to talk to Dr. Houston to see if her meds need to be changed. Pain Assessment - Pain Description Pain Location: lumbar paraspinals and also c/o R hip "catch" - Treatment Modality: Electrical Stim Unattended Parameters/Method Applied: IFC @ 13-14ma to the lumbar paraspinals and over R SI joint x 20 mins with 40% scan Patient Position: Left Sidelying - Heat/Cryotherapy Treatment: Hot Pack Interventions - Exercise/Activities/Manual Therapy Exercises/Activities: Pt begins with passive stretching of SKTC, piriformis, fig 4, and hamstrings Bilateral LE x 4. Patient continues ball squeezes, isometric hip flexion/abd with green tband, bridging, green tband DF, SAQ 1 1/2 # 2 x 10 reps. Sitting at EOB: shoulder shrugs and scap retraction for posture x 10. Encouraged patient to use her cane at home and in community for safety and working on HeP. Discussed estim and its benefits. Total minutes of Exercise: 22 Manual Therapy: NA HOME EXERCISE PROGRAM: None given today. - Charges Timed Code Treatment Minutes: 22 Total Treatment Time: 46 Procedures billed for this date of service:: hp, estim (un), ex Assessment: Treatment was modified today to estim from u/s to verify any improvement. Patient verbalizes mild decrease in pain. Patient presents with increased c/o dizziness. She often expresses, "I don't know what's the matter with me." She has taken her medication today, but amb to the waiting room using arms outstretched reaching for furniture and clinician. She has not been using AD at home. She uses SC in our dept while BOOT AND SHOE REPAIRMAN on her L side assisting to the bathroom and to w/c to waiting room. Patient slight unsteady and does not deviate from path to bathroom. Patient Education: Education of diagnosis, Home Exercise Program, Home Safety, Education of Plan of Care Comments: unsure compliancy with HEP Short Term Goals Goal #1: Patient independent and compliant with basic HEP. Goal to be met by: 09/22/17 Progress towards Goal:: Progressing Goal #2: Bilateral SLR to 40 degrees. Goal to be met by: 09/22/17 Progress towards Goal:: Progressing Goal #3: Patient to report only minimal tenderness at right SI joint. Goal to be met by: 09/22/17 Progress towards Goal:: Progressing Goal #4: Pt to amb. with AAD, with good safety in department. Goal to be met by: 09/22/17 Progress towards Goal:: No Change (patient has been using w/c for transport to our dept due to increased dizziness) Retirement Goals Goal #1: Pt knows HEP and to continue ex's to maintain functional level at D/C. Goal to be met by: 10/14/17 Progress towards goal: Progressing Goal #2: Score on Tinetti Assessment improved to 20/28, to show decreased fall risk. Goal to be met by: 10/14/17 Goal #3: Pt able to amb. community distances w/ AAD and with minimal right hip/ LBP. Goal to be met by: 10/14/17 Goal #4: Score on Oswestry LBP scale improved to <19% impairment. Goal to be met by: 10/14/17 Plan PLAN OF CARE EXPIRES ON:: 10/14/17 ORDER # VISITS AND/OR THROUGH DATE: 10/14/17 PLAN: Patient to continue with using estim and progressive therex.
== END 2017-09-25 23:59 ==
PROVIDERS: ATTEND Internal Medicine
DX: M54.41 Lumbago with sciatica, right side (principal)

== ENCOUNTER 2017-10-07 11:45 | Outpatient (CLI) | payer OTHER ==
[2015-06-14 13:41] VITALS: BMI 21.4
[2017-10-07] MEDS ORDERED: PROLIA SUBCUT STA (11:59)
[2017-10-07 12:04] VITALS: BP 134/62; TEMP 97.4
== END 2017-10-07 12:15 | disposition home or self-care (01) ==
LOC: OPMED 11:45
PROVIDERS: ATTEND Internal Medicine
DX: M81.0 Age-related osteoporosis without current pathological fracture (principal)
CPT/HCPCS: 96372

== ENCOUNTER 2017-10-07 13:00 | Outpatient (RCR) ==
[2015-06-14 13:41] VITALS: BMI 21.4
--- NOTE | 2017-09-26 13:10 | RS.CXNS ---
Date of scheduled appointment: 09/26/17 Type: Cancel Reason for Cancel/NS: sick
--- NOTE | 2017-09-29 15:36 | RS.OPPTDN ---
Subjective Date of Note: 09/29/17 Visit #: 5 Date of Evaluation: 09/08/17 Payer Source: MEDICARE Treatment Diagnosis: Right low back pain/sciatica, gait difficulty Current Subjective/complaints:: Patient says she is having pain now at the L upper leg and groin. She asks if pain can move from her R leg to the L. She says her dizziness is unchanged and reports it feels like it is worsening. She says she is has used her cane today, but did not bring it with her today since she did not drive. - Treatment Modality: Ultrasound Parameters/Method Applied: continuous @ 1.5 w/cm2 x 10 mins to the bilateral lumbar paraspinals Patient Position: Right Sidelying - Heat/Cryotherapy Treatment: Hot Pack (over the low back in R sidelying x 15 mins) Interventions - Exercise/Activities/Manual Therapy Exercises/Activities: Pt begins with passive stretching of SKTC, piriformis, fig 4, and hamstrings Bilateral LE x 4. Patient continues ball squeezes, isometric hip flexion/abd with green tband, bridging, green tband DF, SAQ increased to 2# 2 x 10 reps. Sitting at EOB: shoulder shrugs and scap retraction for posture x 10. Encouraged patient to use her cane at home and in community for safety and working on HeP. Total minutes of Exercise: 22 Manual Therapy: NA HOME EXERCISE PROGRAM: None given today. - Charges Timed Code Treatment Minutes: 32 Total Treatment Time: 47 Procedures billed for this date of service:: hp, u/s, ex Assessment: Modified treatment to u/s to verify any change with back pain. Patient continues with dizziness daily that has not improved with exercise. Pain has moved from the R LE to the L. She should use AD daily to assist with gait and dizziness. She uses it very inconsistently. Patient Education: Home Exercise Program, Home Safety Patient demonstrates compliance with HEP?: Yes Short Term Goals Goal #1: Patient independent with basic HEP Goal to be met by: 09/22/17 Progress towards Goal:: Progressing Goal #2: Bilateral SLR to 40 degrees. Goal to be met by: 09/22/17 Progress towards Goal:: Met Goal #3: Patient to report only minimal tenderness at right SI joint. Goal to be met by: 09/22/17 Progress towards Goal:: Progressing Goal #4: Pt to amb. with AAD, with good safety in department. Goal to be met by: 09/22/17 Progress towards Goal:: No Change Intermediate Goals Goal #1: Pt knows HEP and to continue ex's to maintain functional level at D/C. Goal to be met by: 10/14/17 Progress towards goal: Progressing Goal #2: Score on Tinetti Assessment improved to 20/28, to show decreased fall risk. Goal to be met by: 10/14/17 Goal #3: Pt able to amb. community distances w/ AAD and with minimal right hip/ LBP. Goal to be met by: 10/14/17 Goal to be met by: 10/14/17 Plan PLAN OF CARE EXPIRES ON:: 10/14/17 ORDER # VISITS AND/OR THROUGH DATE: 10/14/17 PLAN: Patient may continue with u/s to check pain improvement. Will also work with gait this week to assess any changes using SC/NBQC.
--- NOTE | 2017-10-02 14:40 | RS.OPPTDN ---
Subjective Date of Note: 10/02/17 Visit #: 6 Date of Evaluation: 09/08/17 Payer Source: MEDICARE Treatment Diagnosis: Right low back pain/sciatica, gait difficulty Current Subjective/complaints:: Patient says she is less dizzy today. Reports pain continues to be changed to the L upper thigh. Patient says she now has no problems with the R LE or exercises, but does have difficulty when using the L. Pain Assessment - Pain Description Pain Location: L upper thigh - Treatment Modality: Ultrasound Parameters/Method Applied: continuous @ 1.5 w/cm2 x 10 mins to the L lumbar paraspinals Patient Position: Right Sidelying - Heat/Cryotherapy Treatment: Hot Pack (over the lumbar and L hip x 15 mins in sidelying) Comments:: over the low back and L hip in sidelying x 20 mins prior to u/s Interventions - Exercise/Activities/Manual Therapy Exercises/Activities: Pt begins with passive stretching of SKTC, piriformis, fig 4, and hamstrings Bilateral LE x 4. Patient continues ball squeezes, isometric hip flexion/abd with green tband, bridging, green tband DF, SAQ increased to 2# 2 x 10 reps. Sitting at EOB: shoulder shrugs and scap retraction for posture x 10. Encouraged patient to use her cane at home and in community for safety and working on HeP. Total minutes of Exercise: 22 Manual Therapy: NA HOME EXERCISE PROGRAM: None given today. - Charges Timed Code Treatment Minutes: 32 Total Treatment Time: 47 Procedures billed for this date of service:: hp, u/s, ex Assessment: Patient presents to dept with SCHOOL CROSSING GUARD by YARDMASTER steadier gait, but difficulty with rolling in bed for R sidelying at times. Patient admits to not performing HEP. Reviewed and encouraged BID. She is able to perform all therex on the R LE without difficulty, some soreness to the L with rotation and HS stretching. Patient Education: Education of diagnosis, Home Exercise Program, Education of Plan of Care Patient demonstrates compliance with HEP?: No Short Term Goals Goal #1: Patient independent with basic HEP Goal to be met by: 09/22/17 Progress towards Goal:: Progressing Goal #2: Bilateral SLR to 40 degrees. Goal to be met by: 09/22/17 Progress towards Goal:: Met Goal #3: Patient to report only minimal tenderness at right SI joint. Goal to be met by: 09/22/17 Progress towards Goal:: Met Comments:: Patient's pain has moved to the L upper thigh now Goal #4: Pt to amb. with AAD, with good safety in department. Goal to be met by: 09/22/17 Progress towards Goal:: Progressing (Patient not using AD however) Instrument Maker Apprentice Goals Goal #1: Pt knows HEP and to continue ex's to maintain functional level at D/C. Goal to be met by: 10/14/17 Progress towards goal: Progressing Goal #2: Score on Tinetti Assessment improved to , to show decreased fall risk. Goal to be met by: 10/14/17 Goal #3: Pt able to amb. community distances w/ AAD and with minimal right hip/ LBP. Goal to be met by: 10/14/17 Goal to be met by: 10/14/17 Plan PLAN OF CARE EXPIRES ON:: 10/14/17 ORDER # VISITS AND/OR THROUGH DATE: 10/14/17 PLAN: Patient to continue BIW next week for progression of therex
--- NOTE | 2017-10-07 14:36 | RS.OPPTDN ---
Subjective Date of Note: 10/07/17 Visit #: 7 Date of Evaluation: 09/08/17 Payer Source: MEDICARE Treatment Diagnosis: Right low back pain/sciatica, gait difficulty Current Subjective/complaints:: Patient c/o elevated L hip and LE pain since over the weekend. She says she is getting worse. Denies any increased activity that may have contributed. Daughter accompainies her to PT today using w/c. Reports she returns to MD tomorrow. Pain Assessment - Pain Description Pain Location: 8-9/10 L SI to the upper leg - Treatment Modality: Ultrasound Parameters/Method Applied: continuous @ 1.5 w/cm2 over the L lumbar paraspinals and SI region x 13 mins Patient Position: Right Sidelying - Heat/Cryotherapy Treatment: Hot Pack (over the low back and the L hip/upper leg sidelying x 15 mins) Interventions - Exercise/Activities/Manual Therapy Exercises/Activities: Pt receives more conservative activity due to elevated pain. SKTC, HS, Piriformis, limited range figure 4, lower trunk rotation, x 4 to the L. Patient educated in diagnosis, alternating heat/ice for pain, and performing HEP. Total minutes of Exercise: 13 Manual Therapy: NA HOME EXERCISE PROGRAM: None given today. - Charges Timed Code Treatment Minutes: 26 Total Treatment Time: 51 Procedures billed for this date of service:: hp, u/s, ex Assessment: Patient presents via w/c per daughter with experiencing elevated L low back and L SI/upper thigh pain. Her pain has switched from R to L and no symptoms at all to the R now. She has difficulty WBing on the L LE today elevating pain. She does have mild decrease in pain following treatment, but still struggles with bed mobs (sit to supine and rolling to the R side) and standing/amb due to pain level to the L. Patient returns to MD tomorrow. Plans are to hold therapy until she talks to him tomorrow and possibly discharge due to regression. Patient Education: Home Exercise Program, Education of Plan of Care Patient demonstrates compliance with HEP?: Yes Short Term Goals Goal #1: Patient independent with basic HEP Goal to be met by: 09/22/17 Progress towards Goal:: Progressing Goal #2: Bilateral SLR to 40 degrees. Goal to be met by: 09/22/17 Progress towards Goal:: Met Goal #3: Patient to report only minimal tenderness at right SI joint. Goal to be met by: 09/22/17 Progress towards Goal:: Regressing Goal #4: Pt to amb. with AAD, with good safety in department. Goal to be met by: 09/22/17 Progress towards Goal:: Regressing (Patient not using AD however) Wool Broker Goals Goal #1: Pt knows HEP and to continue ex's to maintain functional level at D/C. Goal to be met by: 10/14/17 Progress towards goal: Progressing Goal #2: Score on Tinetti Assessment improved to 20/28, to show decreased fall risk. Goal to be met by: 10/14/17 Progress towards goal: No Change Goal #3: Pt able to amb. community distances w/ AAD and with minimal right hip/ LBP. Goal to be met by: 10/14/17 Progress towards goal: Regressing Plan PLAN OF CARE EXPIRES ON:: 10/14/17 ORDER # VISITS AND/OR THROUGH DATE: 10/14/17 PLAN: Patient to attend MD appt tomorrow. Plan to hold therapy and then discharge due to regression at this time.
--- NOTE | 2017-10-10 14:18 | RS.OPPTDC ---
Date of Discharge: 10/07/17 Date of Evaluation: 09/08/17 Number of Visits: 7 Treatment Diagnosis: Right low back pain/sciatica, gait difficulty Current Complaints/Gains: Ms. Nunez reports pain is worsening her ablity to stand or walk. States pain has moved from the right side of the back to the left LE at the SI and hip. She has continued to report dizziness as well, which she reports affects her walking. Functional Outcome Measure Oswestry LBP: 58 Tinetti: 12 (04/24=57% impairment) - G Codes & Severity Modifier G Codes & Modifier: Mobility D/C CK. Mobility goal CI Source of G Code score: Oswestry and Tinetti Gait - Gait Pattern Gait Comments: Patient has required a wheelchair to transport her to our department for most of her sessions. She continues to deviate moderately from a straight path and have to hold on to the wall for safety. Interventions - Exercise/Activities/Manual Therapy Exercises/Activities: NA Manual Therapy: NA HOME EXERCISE PROGRAM: None given today. - Objective Findings Observations,measurements,etc.: Patient's presentation in department is worsening. she reports this is due to increased back pain. She continues to hold on to dominguez and furniture to walk. She is uanble to weight bear through the left LE, which is limiting all of her activity/ADL's. - Charges Timed Code Treatment Minutes: NA Total Treatment Time: NA Procedures billed for this date of service:: NA Assessment Assessment: Ms. Nunez reported worsening back pain and demonstrated continued difficulty with ambulation. Different modalities were attempt and therapeutic exercises, but patient showed no improvement. Short Term Goals Goal #1: Patient independent with basic HEP Goal to be met by: 09/22/17 Progress towards Goal:: Not Met Goal #2: Bilateral SLR to 40 degrees. Goal to be met by: 09/22/17 Progress towards Goal:: Met Goal #3: Patient to report only minimal tenderness at right SI joint. Goal to be met by: 09/22/17 Progress towards Goal:: Not Met Goal #4: Pt to amb. with AAD, with good safety in department. Goal to be met by: 09/22/17 Progress towards Goal:: Not Met (Patient not using AD however) Senior Care Goals Goal #1: Pt knows HEP and to continue ex's to maintain functional level at D/C. Goal to be met by: 10/14/17 Progress towards goal: Not Met Goal #2: Score on Tinetti Assessment improved to 20/28, to show decreased fall risk. Goal to be met by: 10/14/17 Progress towards goal: Not Met Goal #3: Pt able to amb. community distances w/ AAD and with minimal right hip/ LBP. Goal to be met by: 10/14/17 Progress towards goal: Not Met Goal #4: Score on Oswestry LBP scale improved to <19% impairment. Goal to be met by: 10/14/17 Progress towards goal: Not Met Plan Reason for Discharge:: Lack of Progress
== END 2017-10-25 23:59 ==
PROVIDERS: ATTEND Internal Medicine
DX: M54.41 Lumbago with sciatica, right side (principal)

== ENCOUNTER 2017-10-08 11:39 | Outpatient (CLI) | payer OTHER ==
[2015-06-14 13:41] VITALS: BMI 21.4
--- NOTE | 2017-10-08 14:18 | CT ---
EXAM: CT of the lumbar spine without contrast History: Lower back pain and left leg pain. Comparison: Lumbar spine CT 08/30/2015 Technique: Multiplanar CT images through the lumbar spine were obtained without the administration o f IV contrast. Findings: Atherosclerotic vascular calcifications. Colonic diverticulosis. No acute fracture or subluxation of the lumbar spine. Moderate to severe disc space narrowing at L2- L3. Mild to moderate disc space narrowing seen elsewhere. There is endplate sclerosis and osteophyt e formation. T12-L1: No significant bony central canal stenosis or bony neural foraminal narrowing. L1-L2: No significant bony central canal stenosis or bony neural foraminal narrowing. L2-L3: There is air seen posterior to the L2 vertebral body probably associated with an extruded dis c. The disc bulge is right paracentral with mild to moderate central canal stenosis. Mild to moderat e right and mild left bony neural foraminal narrowing secondary to ligamentous and facet hypertrophy. L3-L4: Paracentral disc protrusion effacing anterior thecal sac with mild central canal stenosis. N o significant bony neural foraminal narrowing. L4-L5: Modest paracentral disc protrusion effacing anterior thecal sac with mild central canal steno sis. Mild to moderate bilateral bony neural foraminal narrowing secondary to ligamentous and facet h ypertrophy. L5-S1: No significant disc bulge or central canal stenosis. Moderate to severe left and mild right bony neural foraminal narrowing secondary to ligamentous and facet hypertrophy. Impression: 1. No acute osseous abnormality of the lumbar spine. 2. Level by level analysis as detailed above not significantly changed compared to the prior study e xcept for air within an excluded disc at L2-L3. 3. No significant interval change in the mild to moderate neural foraminal narrowing on the left at L 5-S1.
== END 2017-10-08 11:40 | disposition home or self-care (01) ==
LOC: RAD 11:39
PROVIDERS: ATTEND Internal Medicine
DX: M54.5 Low back pain (principal)

== ENCOUNTER 2017-10-23 09:26 | Outpatient (CLI) ==
[2015-06-14 13:41] VITALS: BMI 21.4
--- NOTE | 2017-10-23 12:12 | US ---
Exam: [place]unguia-scale and color Doppler ultrasonographic evaluation of the abdomen. Limited abdominal ul trasound Reason for exam: Primary biliary cholangitis. Comparison: CT abdomen pelvis performed 07/20/2015. FINDINGS: The liver measures approximately 13.1 cm in length. There is a heterogeneous appearing he patic echotexture. No obvious ductal dilatation is seen. Image interpretation is limited by the over lying ribs. No obvious ductal dilatation or perihepatic free fluid. There is normal antegrade portal venous flow . The gallbladder wall measures 0.25 cm which is within normal limits. No evidence of intraluminal slu dge, stone or polyp. Common bile duct measures 0.32 cm without intraluminal stone or polyp. The partially imaged pancreas is not well seen secondary to overlying bowel gas. Imaging findings ra ise consideration for mild ductal dilatation. The right kidney measures 9.3 x 3.3 x 4.1 cm without hydronephrosis or nephrolithiasis. Impression: 1. Limited ultrasonographic evaluation secondary to overlying ribs and bowel gas. No obvious ductal d ilatation or perihepatic free fluid is seen. 2. Imaging findings raise consideration for prominence of the main pancreatic duct. Further evaluati on is recommended.
== END 2017-10-23 09:27 | disposition home or self-care (01) ==
LOC: RAD 09:26
PROVIDERS: ATTEND Internal Medicine Gastroenterology
DX: K74.3 Primary biliary cirrhosis (principal); K74.69 Other cirrhosis of liver
CPT/HCPCS: 36415; 80053; 82105; 85027

== ENCOUNTER 2017-11-14 08:14 | Outpatient (CLI) ==
[2015-06-14 13:41] VITALS: BMI 21.4
--- NOTE | 2017-11-14 13:10 | MRI ---
EXAM: MRI abdomen without and with contrast/MRCP HISTORY: Enlarged pancreatic duct TECHNIQUE: Multiplanar, multisequence without and with contrast using a pancreatic protocol. MRCP a cquired 3-D volume rendered images of the biliary tree. COMPARISON: Abdominal sonogram from 10/23/[address] abdomen from 07/20/2015 FINDINGS: The heart size is normal. No pericardial or pleural effusions are detected. A moderate h iatus hernia is noted. The hepatic signal intensity is grossly normal. Respiratory motion artifact obscures details on ritika ral sequences. No obvious hepatic lesions are detected. The portal and hepatic veins are patent. T he spleen has normal size and signal. The gallbladder is present without biliary dilatation. The pa ncreatic duct is within normal limits. There is no side branch duct dilatation or pancreatitis. The pancreas has normal signal and enhancement without evidence of acute or chronic pancreatitis. The a drenal glands have normal signal and morphology. Simple acquired bilateral renal cysts are detected. The ureters are nondilated. The abdominal aorta has normal caliber and flow signal. The intestines have normal signal without evidence of obstruction or acute inflammation. No lymphade nopathy or ascites are appreciated. The bone marrow signal intensity is normal. IMPRESSION: 1. No evidence of acute or chronic pancreatitis. 2. Normal pancreatic duct without divisum or side branch duct dilatation. 3. Normal biliary tree. 4. Simple acquired renal cysts.
== END 2017-11-14 08:15 | disposition home or self-care (01) ==
LOC: RAD 08:14
PROVIDERS: ATTEND Internal Medicine
DX: K86.89 Other specified diseases of pancreas (principal)

== ENCOUNTER 2017-12-11 13:16 | Emergency (ER) | payer OTHER ==
[2017-12-11 13:20] VITALS: BP 162/72; TEMP 98; BMI 21.9
--- NOTE | 2017-12-11 13:51 | ED.PDOC ---
General ED Provider: Dr. ALLISON CORTES Chief Complaint: Hypertension Stated Complaint: BP high at Ortho center prior to procedure this morning. 160 / 100s. They canceled her procedure of spinal injection and instructed patient to go directly to the ER for Eval and Teatment. States she was very anxious and fearful of her procedure plus her was driving eratically enroute to the center which made her very upset and nervous. States she neglected to take her Metoprolol this morning. Went home and took her med at 1300. Time Seen by Physician: 13:20 Mode of Arrival: Walk-In Information Source: Patient Exam Limitations: No limitations Primary Care Provider: SANTIAGO VERMA Nursing and Triage Documentation Reviewed and Agree: Yes Does patient meet sepsis criteria?: Yes If yes, has appropriate treatment been initiated?: Yes System Inflammatory Response Syndrome: Not Applicable Sepsis Protocol: For patient's 13 years and over: Temp is 96.8 and below OR 101 and greater Pulse >90 BPM Resp >20/minute Acutely Altered Mental Status Are patient's symptoms suggestive of a new infection, such as: -Pneumonia -Skin, Soft Tissue -Endocarditis -UTI -Bone, Joint Infection -Implantable Device -Acute Abdominal Infection -Wound Infection -Meningitis -Blood Stream Catheter Infection -Unknown Cardiovascular Complaint Exam - Hypertension Complaint/Exam Symptoms Are: Still present Timing: Constant Aggravating: Reports: Exertion (being anxious) Associated Signs and Symptoms: Reports: Anxiety, Recent stress. Denies: Chest pain, Vision changes, Headache, Numbness, Tingling, Weakness, Dizziness, Short of air, Swelling Related History: Denies: Similar episode Related Surgical History: Reports: None Cardiac Risk Factors: Reports: Hypertension Review of Systems - Review Of Systems Constitutional: Reports: No symptoms Eyes: Reports: No symptoms Ears, Nose, Mouth, Throat: Reports: No symptoms Respiratory: Reports: No symptoms Cardiac: Reports: No symptoms GI: Reports: No symptoms : Reports: No symptoms Musculoskeletal: Reports: No symptoms Skin: Reports: No symptoms Neurological: Reports: No symptoms, Anxiety Endocrine: Reports: No symptoms Hematologic/Lymphatic: Reports: No symptoms All Other Systems: Reviewed and Negative Past Medical History - Past Medical History Previously Healthy: Yes Endocrine: Reports: Hypothyroid, Dyslipidemia Cardiovascular: Reports: Hypertension Respiratory: Reports: None Hematological: Reports: None Gastrointestinal: Reports: Liver (Cirrhoses) Genitourinary: Reports: None Neuro/Psych: Reports: Anxiety Musculoskeletal: Reports: None Cancer: Reports: None Last Menstrual Period: N/A - Surgical History General Surgical History: Reports: Unknown - Family History Family History: Reports: None - Social History Smoking Status: Current every day smoker Hx Substance Use: No Alcohol Screening: None - Immunizations Tetanus Shot up to Date: No Physical Exam - Physical Exam Appearance: Well-appearing, No pain distress, Well-nourished Ill-appearing: Mild Pain Distress: None Eyes: ANTONIO, EOMI, Conjunctiva clear ENT: Ears normal, Nose normal, Oropharynx normal Respiratory: Airway patent, Breath sounds clear, Breath sounds equal, Respirations nonlabored Cardiovascular: RRR, Pulses normal, No rub, No murmur GI/: Soft, Nontender, No masses, Bowel sounds normal, No Organomegaly Musculoskeletal: Normal strength, ROM intact, No edema, No calf tenderness Skin: Warm, Dry, Normal color Neurological: Sensation intact, Motor intact, Reflexes intact, Cranial nerves intact, Alert, Oriented Psychiatric: Affect appropriate, Mood appropriate Critical Care Note - Critical Care Note Total Time (mins): 0 Course - Course Hematology/Chemistry: 12/11/17 14:07 12/11/17 14:07 Orders, Labs, Meds: Lab Review 12/11/17 12/11/17 14:07 14:07 WBC 8.03 RBC 4.71 Hgb 15.1 Hct 43.5 MCV 92.4 MCH 32.1 H MCHC 34.7 RDW Coeff of Ervin 12.7 Plt Count 219 Immature Gran % (Auto) 0.2 Neut % (Auto) 69.7 Lymph % (Auto) 21.3 [place] % (Auto) 7.6 Eos % (Auto) 0.6 Baso % (Auto) 0.6 Immature Gran # (Auto) 0.0 Neut # (Auto) 5.6 Lymph # (Auto) 1.7 [place] # (Auto) 0.6 Eos # (Auto) 0.1 Baso # (Auto) 0.1 Sodium 141 Potassium 3.9 Chloride 108 H Carbon Dioxide 24 Anion Gap 12.9 BUN 15 Creatinine 0.73 Estimated GFR (MDRD) 78.00 BUN/Creatinine Ratio 20.54 Glucose 91 Calcium 9.5 Total Bilirubin 0.8 AST 23 ALT 15 Alkaline Phosphatase 195 H Total Protein 7.7 Albumin 3.8 Globulin 3.9 Albumin/Globulin Ratio 0.97 Orders Category Date Time Status EKG-(ED ONLY) Stat CARDIO 12/11/17 13:48 Completed CBC W/ AUTO DIFF Stat LAB 12/11/17 14:07 Completed CMP [COMPREHENSIVE METABOLIC PANEL] Stat LAB 12/11/17 14:07 Completed Vital Signs: Temp Pulse Resp BP Pulse Ox 12/11/17 13:16 98.0 F 75 18 162/72 H 98 ANDREEA Risk Score ANDREEA Risk Score: Risk Score Odds of by 30D 0 0.1 (0.1-0.2) 1 0.3 (0.2-0.3) 2 0.4 (0.3-0.5) 3 0.7 (0.6-0.9) 4 1.2 (1.0-1.5) 5 2.2 (1.9-2.6) 6 3.0 (2.5-3.6) 7 4.8 (3.8-6.1) Departure - Departure Time of Disposition: 15:10 Disposition: HOME SELF-CARE Discharge Problem: Hypertension, Moderate anxiety Instructions: Heart Healthy Diet (ED), Hypertension in the Older Adult (ED) Condition: Good Pt referred to PMD for follow-up: Yes (Dr Verma in next Week) IPMP verified?: No Additional Instructions: Take Metoprolol 50 mg twice daily maintain adequate fluid intake Monitor BP at Home Twice daily See Dr Verma in next week Allergies/Adverse Reactions: Allergies No Known Allergies Allergy (Verified 10/07/17 12:24) Home Medications: Ambulatory Orders Levothyroxine Sodium [Tirosint] 50 mcg PO DAILY 05/31/15 Metoprolol Tartrate 50 mg PO DAILY 05/31/15 Ursodiol 500 mg PO DAILY 05/31/15 Pantoprazole Sodium [Protonix] 40 mg PO DAILY 06/14/15 Disposition Discussed With: Patient, Family
== END 2017-12-11 15:19 | disposition home or self-care (01) ==
LOC: ED 13:16
DX: I10 Essential (primary) hypertension (principal); F41.9 Anxiety disorder, unspecified; E78.5 Hyperlipidemia, unspecified; E03.9 Hypothyroidism, unspecified; F17.210 Nicotine dependence, cigarettes, uncomplicated; Z79.899 Other long term (current) drug therapy
CPT/HCPCS: 36415; 80053; 85025; 93005; 93010; 99283

== ENCOUNTER 2018-08-04 09:59 | Outpatient (CLI) ==
[2018-08-04] MEDS ORDERED: PROLIA SUBCUT STA (10:23)
[2018-08-04 11:12] VITALS: BP 132/76; TEMP 97.8
== END 2018-08-04 10:00 | disposition home or self-care (01) ==
LOC: OPMED 09:59
PROVIDERS: ATTEND Internal Medicine
DX: M81.0 Age-related osteoporosis without current pathological fracture (principal)
CPT/HCPCS: 96372

== ENCOUNTER 2022-12-02 10:11 | Inpatient (IN) ==
--- NOTE | 2022-12-02 10:30 | ED.PDOC ---
General ED Provider: Dr. MITRA SIFUENTES MD Chief Complaint: Weakness Stated Complaint: generalized weakness Time Seen by Provider: 12/02/22 10:27 Mode of Arrival: Ambulance Information Source: Patient and EMT Exam Limitations: No limitations Primary Care Provider: SANTIAGO HOUSTON MD Nursing and Triage Documentation Reviewed and Agree: Yes Neurological Complaint Exam Weakness Complaint/Exam Last Known Well: yesterday Onset: Gradual Duration: ~1 day Symptoms Are: Worse Timing: Constant Initial Severity: Moderate Current Severity: Moderate Character: Reports Weak (generalized) Aggravating: Reports None Alleviating: Reports None Associated Signs and Symptoms: Reports Unsteady gait (reportedly unable to ambulate) Cardiac Risk Factors: Reports Hypertension and Smoking CVA Risk Factors: Reports Hypertension and Smoking Related Surgical History: Reports None JVD Present: No Carotid Bruit Present: No Glascow Coma Scale (see protocol): 15 Nystagmus Present: No Meningeal Signs Positive: No Focal Weakness: Present None Focal Sensory Loss: Present None Gait: Unable [id number]: Normal Findings Differential Diagnoses: Hypovolemia, GI Bleed, Metabolic abnormalities and Other (UTI) Review of Systems Review Of Systems Constitutional: Reports Chills, Malaise and Weakness (generalized) 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) Ears, Nose, Mouth, Throat: Reports Other (deaf in right ear, [place] in right) : Reports Frequency and Incontinence; Denies Burning or Dysuria Neurological: Reports Weakness (generalized) All Other Systems: Reviewed and Negative [facility] Medical History Arthritis M19.90 - Unspecified osteoarthritis, unspecified site (ICD-10) Chronic obstructive pulmonary disease J44.9 - Chronic obstructive pulmonary disease, unspecified (ICD-10) Elevated cholesterol E78.00 - Pure hypercholesterolemia, unspecified (ICD-10) Gastroesophageal reflux disease K21.9 - Gastro-esophageal reflux disease without esophagitis (ICD-10) GI problem R19.8 - Other specified symptoms and signs involving the digestive system and abdomen (ICD-10) History of seasonal allergies Z88.9 - Allergy status to unspecified drugs, medicaments and biological substances status (ICD-10) Thyroid condition E07.9 - Disorder of thyroid, unspecified (ICD-10) Family History Mother Kidney disorder Hypertension Other Elevated cholesterol Social History Smoking and tobacco status: Current every day smoker Tobacco type: cigarettes Smoking packs per day: 1 Years smoked: 50 Tobacco: How many years used: 40 Second hand smoke exposure: Yes Alcohol intake: never Substance use type: does not use Special mckenzie needs: No Agree to transfusion: Yes Adopted: No Caregiver/support person: No Housing: house Marital status: S SINGLE Lives independently: Yes Daycare: no daycare Number of children: 4 Financial difficulty paying for basics: not very hard service: No jail: No Current occupational status: retired History of recent travel: No Current gender identity: female Seatbelt use: always Helmet use: No Drives intoxicated or rides with intoxicated frontload driver: No Water heater temperature set < 120 degrees: Yes Working smoke detector in home: Yes Fire extinguisher in home: Yes Carbon monoxide detector in home: Yes Surgical History History of left-sided carotid endarterectomy Z98.890 - Other specified postprocedural states (ICD-10) History of tubal ligation Z98.51 - Tubal ligation status (ICD-10) Female Reproductive History Menstrual Hx Hysterectomy: No Hx Tubal Ligation: No Physical Exam Physical Exam Appearance: Reports Ill-appearing, Well-nourished and Other (appears older than stated age) Ill-appearing: Moderate Pain Distress: None Eyes: Reports ANTONIO, EOMI and Conjunctiva clear ENT: Reports Ears normal and Nose normal Neck: Nonsupple (normal age-appropriate external appearance) Respiratory: Reports Airway patent, Breath sounds clear, Breath sounds equal, Breath sounds diminished and Respirations nonlabored Cardiovascular: Reports RRR GI/: Reports Soft, Nontender and Bowel sounds normal Musculoskeletal: Reports Limited strength (generalized) Skin: Reports Warm, Dry and Normal color Neurological: Reports Sensation intact, Cranial nerves intact, Alert, Oriented and Other (generalized weakness) Psychiatric: Reports Affect appropriate and Mood appropriate Interpretation EKG Interpretation EKG Interpretation By: ED Physician Time of EKG #1: 10:34 Rate: Normal (70) Rhythm: Sinus Ectopy: None [place]: [place] ST Segment: Normal Interpretation: normal ECG Critical Care Note Critical Care Note Total Critical Care Time (mins): 0 Course Course 12/05/22 05:16 12/05/22 05:16 Orders, Labs, Meds: Lab Review 12/02/22 12/02/22 12/02/22 10:28 10:30 10:45 WBC 6.54 RBC 4.82 Hgb 15.1 Hct 45.3 MCV 94.0 MCH 31.3 H MCHC 33.3 RDW Coeff of Ervin 12.9 Plt Count 162 Immature Gran % (Auto) 0.3 Neut % (Auto) 75.6 H Lymph % (Auto) 11.9 [place] % (Auto) 11.9 H Eos % (Auto) 0.0 Baso % (Auto) 0.3 Neut # (Auto) 4.9 Lymph # (Auto) 0.8 [place] # (Auto) 0.8 Eos # (Auto) 0.0 Baso # (Auto) 0.0 Immature Gran # (Auto) 0.0 Sodium 129.5 L Potassium 3.61 Chloride 97.0 L Carbon Dioxide 22.4 Anion Gap 13.71 BUN 17.5 H Creatinine 0.61 Estimated GFR (MDRD) 95.00 BUN/Creatinine Ratio 28.68 Glucose 133.5 H Lactic Acid 1.34 Calcium 9.39 Magnesium 1.85 Total Bilirubin 1.00 AST 87.4 H ALT 57.5 H Alkaline Phosphatase 1017.3 H Total Creatine Kinase 346.8 H CK-MB (CK-2) 6.660 H* CK-MB (CK-2) % 1.9200 Total Protein 8.11 Albumin 4.34 Globulin 3.77 Albumin/Globulin Ratio 1.15 Procalcitonin 0.10 H Free T4 0.82 Influ A Molecular Assay Negative by naat Influ B Molecular Assay Negative by naat SARS CoV-2 RNA Rapid YANELIS Positive H Orders Category Date Time Status EKG-(ED ONLY) Stat CARDIO 12/02/22 10:29 Completed Saline Lock [ED IV/MEDIPORT/POWERPORT] .ONCE EMERGENCY 12/02/22 12:03 Active BLOOD CULTURE (ED ONLY) Stat LAB 12/02/22 10:45 Results CBC W/ AUTO DIFF Stat LAB 12/02/22 10:45 Completed CMP [COMPREHENSIVE METABOLIC PANEL] Stat LAB 12/02/22 10:45 Completed COVID [SARS COV-2 RNA RAPID YANELIS] Stat LAB 12/02/22 10:28 Completed FLU A & B MOLECULAR [FLU A/B MOLECULAR] Stat LAB 12/02/22 10:30 Completed FREE T4 (FREE THYROXINE) Stat LAB 12/02/22 10:45 Completed LACTIC ACID Stat LAB 12/02/22 10:45 Completed MAGNESIUM Stat LAB 12/02/22 10:45 Completed PROCALCITONIN Stat LAB 12/02/22 10:45 Completed RAPID STREP SCREEN [MOLECULAR GROUP A STREP] Stat LAB 12/02/22 10:34 Completed UA [URINALYSIS C & S IF INDICATED] Stat LAB 12/02/22 13:30 Completed 0.9 % Sodium Chloride [Saline Flush] Meds 12/02/22 12:03 Active 1 syr IVF PRN PRN Sodium Chloride 0.9% [Sodium Chloride] 1,000 ml Meds 12/02/22 12:03 Discontinued IV BOLUS CHEST, 1V AP ONLY Stat RADS 12/02/22 10:29 Completed Medications Generic Name Dose Route Start Last Admin Trade Name Freq PRN Reason Stop Dose Admin Acetaminophen 650 mg 12/02/22 14:33 Acetaminophen 325 Mg Tablet PO Q4H PRN Mild Pain Hydrocodone Bitart/Acetaminophen 1 tab 12/02/22 15:55 12/05/22 08:39 Hydrocodone Bit/Acetaminophen 10/325 Mg Tablet PO 1 tab BID JOSE D Administration Albuterol/Ipratropium 3 ml 12/05/22 09:28 Ipratropium/Albuterol Vial.Neb NEB RTQ6H PRN Wheezing Dexamethasone Sodium Phosphate 6 mg 12/03/22 09:20 12/05/22 08:57 Dexamethasone Sod Phos 10 Mg/Ml Inj IVP 6 mg DAILY JOSE D Administration Docusate Sodium 100 mg 12/04/22 21:00 12/05/22 08:39 Docusate Sodium 100 Mg Capsule PO 100 mg BID JOSE D Administration Enoxaparin Sodium 40 mg 12/02/22 15:00 12/05/22 08:42 Enoxaparin Sodium 40 Mg/0.4 Ml Syr SUBCUT 40 mg DAILY JOSE D Administration Gabapentin 300 mg 12/04/22 21:00 12/05/22 08:39 Gabapentin 300 Mg Capsule PO 300 mg BID JOSE D Administration Levothyroxine Sodium 50 mcg 12/03/22 06:30 12/05/22 06:19 Levothyroxine Sodium 50 Mcg Tablet PO 50 mcg QDAC JOSE D Administration Lidocaine 1 patch 12/03/22 21:25 12/05/22 08:41 Lidocaine 5% Patch TP 1 patch DAILY JOSE D Administration Metoprolol Tartrate 50 mg 12/02/22 15:55 12/05/22 08:39 Metoprolol Tartrate 50 Mg Tablet PO 50 mg DAILY JOSE D Administration Omeprazole 40 mg 12/03/22 06:30 12/05/22 06:18 Omeprazole 20 Mg Capsule. PO 40 mg QDAC JOSE D Administration Ondansetron HCl 4 mg 12/02/22 14:33 Ondansetron Hcl/Pf 4 Mg/2 Ml Sdv IVP Q6H PRN Nausea / Vomiting Sodium Chloride 1 syr 12/02/22 12:03 12/04/22 20:32 0.9% Sodium Chloride 10 Ml Disp.Syrin IVF 1 syr PRN PRN Administration To flush IV Discontinued Medications Generic Name Dose Route Start Last Admin Trade Name Freq PRN Reason Stop Dose Admin Bisacodyl 5 mg 12/04/22 09:22 12/04/22 09:46 Bisacodyl 5 Mg Tablet. PO 12/04/22 09:23 5 mg ONCE ONE Administration Gabapentin 300 mg 12/02/22 15:55 12/04/22 09:43 Gabapentin 300 Mg Capsule PO 300 mg DAILY JOSE D Administration Sodium Chloride 1,000 mls @ 1,000 mls/hr 12/02/22 12:03 12/02/22 12:21 Sodium Chloride IV 12/02/22 13:02 1,000 mls/hr BOLUS STA Administration Sodium Chloride 1,000 mls @ 100 mls/hr 12/02/22 15:00 12/04/22 09:42 Sodium Chloride IV Not Given .Q10H JOSE D Non-Formulary Medication 500 mg 12/03/22 09:00 12/03/22 09:30 Ursodiol PO Not Given DAILY JOSE D Tramadol HCl 50 mg 12/03/22 21:20 12/03/22 21:36 Tramadol Hcl 50 Mg Tablet PO 12/03/22 21:21 50 mg ONCE STA Administration Vital Signs: Temp Pulse Resp BP Pulse Ox 12/02/22 10:12 100.3 F 77 18 137/65 94 L Patient presents with ~1 day history of progressively worsening generalized weakness. She fell yesterday and had EMS give a lift assist; denied transport to ED. She reports having been too weak to get into her bed, and slept on her hardwood floor. In that she was unable to leave that spot, she reports having slept in a pool of her own urine. She had a urinary tract infection which was treated with antibiotics prescribed by her PCP, but feels it never fully resolved. She did not see her PCP for a repeat urinalysis. CXR reported ' Cardiomediastinal contours appear stable. Right lung as well aerated. The infiltrate at the left lung base. This may represent atelectasis and/or pneumonia. Small left pleural effusion. No pneumothorax'. Labs posted, consistent with mild to moderate hyponatremia and fluid deficit. The LFTs were elevated, but this is a chronic condition for this patient. The Strep/Flu were both negative, but the CoVid was positive. I called Dr. Houston's cell phone and left a message to call the ED. I spoke with him a short time later and he agreed she would require admission, and asked that she be admitted through the [facility]. I spoke with the Hospitalist INFORMATION TECHNOLOGY DATA ANALYST, Brett, who accepted. She was in stable condition when transported from the ED to the medical floor. Discharge Plan Discharge Patient Disposition: ADMITTED INPATIENT Discharge Problem: Episode of generalized weakness, COVID, Hyponatremia, Fluid volume deficit Did you review [place] [employer] for ALL controlled substances?: Not Applicable ED Provider: MITRA SIFUENTES Condition: Stable Physician Progress Note: []
[2022-12-02 10:53] LABS: BASOPHILS % (AUTO) 0.3 % (0.0-3.0); HEMATOCRIT 45.3 % (37.0-47.0); HEMOGLOBIN 15.1 g/dl (12.0-16.0); IMMATURE GRANULOCYTE % (AUTO) 0.3 % (0.0-5.0); LYMPHOCYTES # (AUTO) 0.8 K/uL (0.60-3.4); LYMPHOCYTES % (AUTO) 11.9 (10.0-50.0); MEAN CORPUSCULAR HEMOGLOBIN 31.3 pg (27.0-31.0); MEAN CORPUSCULAR HGB CONC 33.3 (31.8-35.4); MONOCYTES # (AUTO) 0.8 K/uL (0.4-2.0); MONOCYTES % (AUTO) 11.9 (0-10); NEUTROPHILS # (AUTO) 4.9 K/ul (2.0-6.9); NEUTROPHILS % (AUTO) 75.6 % (42.2-75.2); PLATELET COUNT 162 10^3/uL (140-440); RDW COEFFICIENT OF VARIATION 12.9 % (11.6-14.8); RED BLOOD COUNT 4.82 10^6/ul (4.20-5.40); WHITE BLOOD COUNT 6.54 K/ul (4.6-10.2)
--- NOTE | 2022-12-02 10:55 | DI ---
EXAM: CHEST, SINGLE VIEW HISTORY: Generalized weakness COMPARISON: 02/03/2020 FINDINGS / IMPRESSION: Cardiomediastinal contours appear stable. Right lung as well aerated. The i nfiltrate at the left lung base. This may represent atelectasis and/or pneumonia. Small left pleura l effusion. No pneumothorax.
[2022-12-02 10:59] LABS: MOLECULAR FLU A NEGATIVE BY NAAT (NEGATIVE); MOLECULAR FLU B NEGATIVE BY NAAT (NEGATIVE)
[2022-12-02 11:03] LABS: ALANINE AMINOTRANSFERASE 57.5 U/L (0-35); ALBUMIN 4.34 g/dL (3.5-5.0); ALKALINE PHOSPHATASE 1017.3 U/L (53-141); ASPARTATE AMINO TRANSFERASE 87.4 U/L (14-36); BLOOD UREA NITROGEN 17.5 mg/dL (7-17); CALCIUM 9.39 mg/dL (8.4-10.2); CARBON DIOXIDE 22.4 mmol/L (22-30.0); CREATININE 0.61 mg/dL (0.60-1.30); GLUCOSE 133.5 mg/dL (74-106); MAGNESIUM 1.85 mg/dL (1.6-2.3); POTASSIUM 3.61 mmol/L (3.5-5.1); SODIUM 129.5 mmol/L (134.5-145); TOTAL PROTEIN 8.11 g/dL (6.3-8.2)
[2022-12-02 11:09] LABS: SARS COV-2 RNA RAPID NAAT POSITIVE (NEGATIVE)
[2022-12-02] MEDS ORDERED: SODIUM CHLORIDE 1,000 ML IV STA (12:03)
[2022-12-02] MEDS: SODIUM CHLORIDE 1,000 ML IV SCH (13:50)
[2022-12-02] MEDS ORDERED: ZOFRAN 4 MG/2 ML IVP PRN (14:33)
--- NOTE | 2022-12-02 15:04 | PCM ---
Date of Service Date Seen by Provider: 12/02/22 Time Seen by Provider: 14:30 Admit Day/Time Admission Date: 12/02/22 Admission Time: 14:33 Reason for Admission Chief Complaint: COVID+, HYPONATREMIA, FLUID DEFICIT, Hospital Provider Hospital Provider: BRETT KRAMER PA-C, [facility] [place] Primary Care Physician Primary Care Physician: SANTIAGO HOUSTON MD History of Present Illness History of Present Illness: Patient is a 77 year old female with pmhx of biliary cirrhosis with chronically elevated liver enzymes, hypertension, copd, hyperlipidemia, osteoporosis, hypothyroidism, gerd who presented to the ER for weakness. Patient states that she had fallen at home, EMS came for lift assist. She didn't have an injury so she declined transport. Then last night she was unable to get into her bed so she just laid on her hardwood floor all night. She urinated on herself because she couldn't get to the bathroom. She was finally able to get to her phone to call for EMS. She denies cp, sob, n/v/d. No history of covid. Not covid vaccinated. In ER she had a temp of 100.3, CXR negative, but covid positive. Na 129, BUN elevated. Alk phos elevated from her baseline. Patient saturation in the 90s. She was given fluids. On my evaluation, patient states she has no pain worse than usual, just feels very weak. But then admits that she hurts all over in her muscles from sleeping on the floor. Case Discussed With Case Discussed With: Patient's case was discussed with the ER Physicians, Dr. Butler. [facility] Medical History Arthritis M19.90 - Unspecified osteoarthritis, unspecified site (ICD-10) Chronic obstructive pulmonary disease J44.9 - Chronic obstructive pulmonary disease, unspecified (ICD-10) Elevated cholesterol E78.00 - Pure hypercholesterolemia, unspecified (ICD-10) Gastroesophageal reflux disease K21.9 - Gastro-esophageal reflux disease without esophagitis (ICD-10) GI problem R19.8 - Other specified symptoms and signs involving the digestive system and abdomen (ICD-10) History of seasonal allergies Z88.9 - Allergy status to unspecified drugs, medicaments and biological substances status (ICD-10) Thyroid condition E07.9 - Disorder of thyroid, unspecified (ICD-10) Surgical History History of left-sided carotid endarterectomy Z98.890 - Other specified postprocedural states (ICD-10) History of tubal ligation Z98.51 - Tubal ligation status (ICD-10) Family History Mother Kidney disorder Hypertension Other Elevated cholesterol Social History Smoking and tobacco status: Current every day smoker Tobacco type: cigarettes Smoking packs per day: 1 Years smoked: 50 Tobacco: How many years used: 40 Second hand smoke exposure: Yes Alcohol intake: never Substance use type: does not use Special mckenzie needs: No Agree to transfusion: Yes Adopted: No Caregiver/support person: No Housing: house Marital status: S SINGLE Lives independently: Yes Daycare: no daycare Number of children: 4 Financial difficulty paying for basics: not very hard service: No senior living: No Current occupational status: retired History of recent travel: No Current gender identity: female Seatbelt use: always Helmet use: No Drives intoxicated or rides with intoxicated jitney driver: No Water heater temperature set < 120 degrees: Yes Working smoke detector in home: Yes Fire extinguisher in home: Yes Carbon monoxide detector in home: Yes Allergies Allergies Allergy/AdvReac Type Severity Reaction Status Date / Time [id number] Reductase AdvReac Unknown Unknown Verified 12/02/22 10:19 Inhibitor Current Medications Home Medications levothyroxine 50 mcg capsule (Tirosint) 50 mcg PO DAILY #90 caps 07/25/22 [Rx Confirmed 12/02/22 Last Taken Unknown] metoprolol tartrate 50 mg tablet 50 mg PO DAILY #90 tabs 07/25/22 [Rx Confirmed 12/02/22 Last Taken Unknown] omeprazole 40 mg capsule,delayed release 40 mg PO QDAY #90 caps 07/25/22 [Rx Confirmed 12/02/22 Last Taken Unknown] ursodiol 500 mg tablet 500 mg PO DAILY #90 tabs 07/25/22 [Rx Confirmed 12/02/22 Last Taken Unknown] gabapentin 300 mg capsule 300 mg PO DAILY 12/02/22 [History Confirmed 12/02/22 Last Taken Unknown] hydrocodone 10 mg-acetaminophen 325 mg tablet 1 tab PO BID 12/02/22 [History Confirmed 12/02/22 Last Taken Unknown] Home Acetaminophen (Acetaminophen 325 Mg Tablet) 650 mg PO Q4H PRN PRN Reason: Mild Pain Hydrocodone Bitart/Acetaminophen (Hydrocodone Bit/Acetaminophen 10/325 Mg Tablet) 1 tab PO BID [facility] Last Admin: 12/03/22 09:23 Dose: 1 tab Dexamethasone Sodium Phosphate (Dexamethasone Sod Phos 10 Mg/Ml Inj) 6 mg IVP DAILY [facility] Last Admin: 12/03/22 10:12 Dose: 6 mg Enoxaparin Sodium (Enoxaparin Sodium 40 Mg/0.4 Ml Syr) 40 mg SUBCUT DAILY [facility] Last Admin: 12/03/22 09:23 Dose: 40 mg Gabapentin (Gabapentin 300 Mg Capsule) 300 mg PO DAILY [facility] Last Admin: 12/03/22 09:23 Dose: 300 mg Sodium Chloride (Sodium Chloride) 1,000 mls @ 100 mls/hr IV .Q10H [facility] Last Admin: 12/03/22 12:00 Dose: 100 mls/hr Levothyroxine Sodium (Levothyroxine Sodium 50 Mcg Tablet) 50 mcg PO QDAC [facility] Last Admin: 12/03/22 06:16 Dose: 50 mcg Metoprolol Tartrate (Metoprolol Tartrate 50 Mg Tablet) 50 mg PO DAILY [facility] Last Admin: 12/03/22 09:30 Dose: Not Given Non-Formulary Medication (Ursodiol) 500 mg PO DAILY [facility] Last Admin: 12/03/22 09:30 Dose: Not Given Omeprazole (Omeprazole 20 Mg Capsule.Dr) 40 mg PO QDAC [facility] Last Admin: 12/03/22 06:15 Dose: 40 mg Ondansetron HCl (Ondansetron Hcl/Pf 4 Mg/2 Ml Sdv) 4 mg IVP Q6H PRN PRN Reason: Nausea / Vomiting Sodium Chloride (0.9% Sodium Chloride 10 Ml Disp.Syrin) 1 syr IVF PRN PRN PRN Reason: To flush IV Last Admin: 12/02/22 12:21 Dose: 1 syr Discontinued Medications Sodium Chloride (Sodium Chloride) 1,000 mls @ 1,000 mls/hr IV BOLUS STA Stop: 12/02/22 13:02 Last Admin: 12/02/22 12:21 Dose: 1,000 mls/hr Review of Systems Constitutional: Reports Fever, Fatigue and Weakness Head: Denies Normocephalic or Atraumatic Ears: Denies Drainage Throat: Denies Sore Throat or Difficulty Swallowing Cardiovascular: Denies Chest pain, Chest Pressure or Edema Respiratory: Reports Cough; Denies Shortness of air Gastrointestinal: Denies Nausea, Vomiting, Diarrhea or Abdominal pain Genitourinary: Denies Dysuria Musculoskeletal: Reports Muscle Pain (+hurts all over) Dermatologic: Denies Rashes Neurological: Reports Weakness; Denies Dizziness, Syncope or Seizure Physical examination Most Recent Vital Signs: Most Recent Vital Signs Temperature 100.3 F 12/02/22 10:12 Temperature Source Infrared 12/02/22 10:12 Pulse Rate 77 12/02/22 10:12 Respiratory Rate 18 12/02/22 10:12 Blood Pressure 137/65 12/02/22 10:12 O2 Sat by Pulse Oximetry 94 L 12/02/22 10:12 Height 5 ft 1 in 12/02/22 10:12 Weight 102 lb 15.294 oz 12/02/22 10:12 Appearance: Positive Alert and Oriented x3 and Thin Skin: Positive Shoals and Warm; Negative Rashes or Good Turgor HEENT: Positive Normocephalic and Atraumatic; Negative Oral Mucous Moist Neck: Positive Supple and Midline Trachea Chest/Lungs: Positive Clear to Auscultation Bilaterally; Negative Rales, Rhonci or Wheezes Heart: Positive RRR GI/: Positive Soft, Nontender, Bowel Sounds Normal and No Distention Musculoskeletal: Positive Other (+generalized weakness) Extremities: Negative Edema Neurological: Positive Cranial Nerves Intact, Alert and Oriented; Negative Muscle Strength 5/5 in Upper and Lower Extremities Bilaterally Psychiatric: Positive Oriented x4, Appropriate Mood and Appropriate Affect Labs This Visit Labs This Visit: Labs This Visit 12/02/22 12/02/22 12/02/22 10:28 10:30 10:45 WBC 6.54 RBC 4.82 Hgb 15.1 Hct 45.3 MCV 94.0 MCH 31.3 H MCHC 33.3 RDW Coeff of Ervin 12.9 Plt Count 162 Immature Gran % (Auto) 0.3 Neut % (Auto) 75.6 H Lymph % (Auto) 11.9 Nash % (Auto) 11.9 H Eos % (Auto) 0.0 Baso % (Auto) 0.3 Neut # (Auto) 4.9 Lymph # (Auto) 0.8 Nash # (Auto) 0.8 Eos # (Auto) 0.0 Baso # (Auto) 0.0 Immature Gran # (Auto) 0.0 Sodium 129.5 L Potassium 3.61 Chloride 97.0 L Carbon Dioxide 22.4 Anion Gap 13.71 BUN 17.5 H Creatinine 0.61 Estimated GFR (MDRD) 95.00 BUN/Creatinine Ratio 28.68 Glucose 133.5 H Lactic Acid 1.34 Calcium 9.39 Magnesium 1.85 Total Bilirubin 1.00 AST 87.4 H ALT 57.5 H Alkaline Phosphatase 1017.3 H Total Protein 8.11 Albumin 4.34 Globulin 3.77 Albumin/Globulin Ratio 1.15 Procalcitonin 0.10 H Free T4 0.82 Influ A Molecular Assay Negative by naat Influ B Molecular Assay Negative by naat SARS CoV-2 RNA Rapid YANELIS Positive H Microbiology This Visit 12/02/22 10:34 Throat Group A Strep Molecular Assay - Final Imaging Imaging: EXAM: CHEST, SINGLE VIEW HISTORY: Generalized weakness COMPARISON: 02/03/2020 FINDINGS / IMPRESSION: Cardiomediastinal contours appear stable. Right lung as well aerated. The infiltrate at the left lung base. This may represent atelectasis and/or pneumonia. Small left pleural effusion. No pneumothorax. Review Statement Review Statement: I have independently reviewed and interpreted the labs/EKGs/imaging that were ordered by the ER provider. I have reviewed all outside records that are available currently in our EMR including imaging/notes/labs from previous visits. Plan Plan: 1. Acute symptomatic hyponatremia - 129. Likely due to dehydration and covid. NS at 100 ml/hr. Repeat in AM. 2. Covid 19 - Has chronic cough and weakness. No hypoxia or sob. CXR shows left lung base atelectasis vs pna. Likely viral with covid. Covid isolation. 3. Dehydration - BUN elevated. Continue fluids. Check CPK. 4. Weakness and debility- Continue fluids and replace electrolyte derangements. PT/OT ordered. UA still pending. 5. Elevated liver enzymes - Alk phos higher than baseline. Pt has known biliary cirrhosis and monitored outpatient. Likely worsened in setting of covid. Pt has no abd pain currently. 6. Hypertension - Continue metoprolol 7. Hypothyroidism - Continue levothyroxine 8. GERD - Continue omeprazole. DVT Prophylaxis: Lovenox Time Spent: Greater than 80 minutes spent with patient, 50% of the time spent with this patient was devoted to counseling and coordination of care. [facility] minutes spent discussing advance care planning. FULL CODE Smoking Cessation: 3 minutes spent discussing smoking cessation. Admit to: Inpatient Discussed Plan of Care with Dr. Emmanuel Houston. Medications Medication Orders: Medications Ordered Category Date Time Status 0.9 % Sodium Chloride [Saline Flush] Meds 12/02/22 12:03 Active 1 syr IVF PRN PRN
[2022-12-02 15:05] VITALS: BMI 18.3
[2022-12-02 15:10] LABS: ABG PH 7.48 (7.35-7.45); BEecf 1.8 (-2.0-3.0); COHb 4.2 (0.5-1.5); HCO3 25.3 (21-28); MetHb 1.2 (0-1.5); TCO2 26.3 (19-24); sO2 99.3 % (94-98)
[2022-12-02 15:11] LABS: ABG O2 HGB 94.6 % (95-100); tHb 15.8 g/dl (11.7-17.4)
[2022-12-02 15:17] LABS: BILIRUBIN,URINE Negative (NEGATIVE); CLARITY,URINE Clear (CLEAR); COLOR,URINE Yellow (YELLOW); GLUCOSE, URINE (UA) Negative (NEGATIVE); KETONES,URINE Trace (NEGATIVE); LEUKOCYTE ESTERASE ,URINE Negative (NEGATIVE); NITRITE,URINE Negative (NEGATIVE); PROTEIN,URINE 3+ (NEGATIVE); URINE, BLOOD 3+ (NEGATIVE); UROBILINOGEN,URINE 0.2 (0.2)
[2022-12-02 15:31] LABS: SQUAMOUS EPITHELIAL CELL,UR 20-30 (0-5)
[2022-12-02 15:32] LABS: BACTERIA,URINE TRACE (NOT PRESENT); HYALINE CASTS, URINE 0-2 (NOT PRESENT)
[2022-12-02 16:06] LABS: CREATINE KINASE 346.8 U/L (30-135)
[2022-12-02 16:30] LABS: CREATINE KINASE MB 6.66 ng/ml (0.0-2.38)
[2022-12-02] MEDS: NORCO 10-325 PO SCH ×2 (16:51→20:42)
[2022-12-02] MEDS: LOPRESSOR PO SCH (16:52)
[2022-12-02] MEDS: LOVENOX SUBCUT SCH (16:52)
[2022-12-02] MEDS: NEURONTIN PO SCH (16:52)
[2022-12-03] MEDS: SODIUM CHLORIDE 1,000 ML IV SCH ×2 (00:48→12:00)
[2022-12-03 05:40] LABS: BASOPHILS % (AUTO) 0.6 % (0.0-3.0); EOSINOPHILS % (AUTO) 0.1 % (0.0-7.0); HEMOGLOBIN 12.2 g/dl (12.0-16.0); IMMATURE GRANULOCYTE % (AUTO) 0.4 % (0.0-5.0); MEAN CORPUSCULAR HEMOGLOBIN 31.7 pg (27.0-31.0); MEAN CORPUSCULAR VOLUME 96.1 fl (81.0-99.0); MONOCYTES # (AUTO) 0.9 K/uL (0.4-2.0); MONOCYTES % (AUTO) 13.1 (0-10); NEUTROPHILS # (AUTO) 3.9 K/ul (2.0-6.9); NEUTROPHILS % (AUTO) 56.8 % (42.2-75.2); PLATELET COUNT 144 10^3/uL (140-440); RDW COEFFICIENT OF VARIATION 13.4 % (11.6-14.8); RED BLOOD COUNT 3.85 10^6/ul (4.20-5.40); WHITE BLOOD COUNT 6.93 K/ul (4.6-10.2)
[2022-12-03 05:55] LABS: ALANINE AMINOTRANSFERASE 47.6 U/L (0-35); ALKALINE PHOSPHATASE 647.3 U/L (53-141); BILIRUBIN,TOTAL 0.33 mg/dL (0.2-1.3); BLOOD UREA NITROGEN 29.2 mg/dL (7-17); CALCIUM 8.04 mg/dL (8.4-10.2); CARBON DIOXIDE 22.8 mmol/L (22-30.0); CHLORIDE 105.1 mmol/L (98-107); CREATINE KINASE 285.7 U/L (30-135); CREATININE 0.96 mg/dL (0.60-1.30); GLUCOSE 80.7 mg/dL (74-106); POTASSIUM 3.73 mmol/L (3.5-5.1); SODIUM 134.3 mmol/L (134.5-145); TOTAL PROTEIN 5.78 g/dL (6.3-8.2)
[2022-12-03] MEDS ORDERED: LEVOTHYROXINE 50 MCG PO SCH (06:00)
[2022-12-03 06:10] LABS: CREATINE KINASE MB 4.4 ng/ml (0.0-2.38)
[2022-12-03] MEDS: PRILOSEC PO SCH (06:15)
[2022-12-03] MEDS: SYNTHROID PO SCH (06:16)
[2022-12-03] MEDS ORDERED: URSODIOL 500 MG PO SCH (09:00)
--- NOTE | 2022-12-03 09:12 | PCM.PROG ---
Date/Time Seen Date Seen by Provider: 12/03/22 Time Seen by Provider: 08:30 Provider [facility] Chief Complaint Chief Complaint: COVID+, HYPONATREMIA, FLUID DEFICIT, Subjective Subjective: Patient eating breakfast. States she feels very tired and weak today. States she hurts all over but then states it's because she hasn't had her pain medication yet. Labs improved. Mildly hypoxic overnight, on 1L. Denies sob or cough today. Overall seems to be an unreliable historian when talking with her. Objective Appearance: Positive Alert and Oriented x3 (but seems unreliable when answering questions ) and Thin Chest/Lungs: Positive Clear to Auscultation Bilaterally; Negative Rales, Rhonci or Wheezes Heart: Positive RRR GI/: Positive Soft, Nontender, Bowel Sounds Normal and No Distention Neurological: Positive Cranial Nerves Intact, Alert, Oriented and Other (+generalized weakness ) Vital Signs Vital Signs: Vital Signs: Last 24 Hours 12/02/22 10:12 12/02/22 13:39 12/02/22 13:39 Temperature 100.3 F 98.2 F Temperature Source Infrared Oral Pulse Rate 77 72 Respiratory Rate 18 17 Blood Pressure 137/65 Blood Pressure Mean Blood Pressure Left Arm 152/66 Blood Pressure Location Blood Pressure Position Sitting O2 Sat by Pulse Oximetry 94 L 96 Oxygen Delivery Method Room Air Room Air Oxygen Flow Rate Height 5 ft 1 in 5 ft 1 in Weight 102 lb 15.294 oz 97 lb Telemetry Type Telemetry Monitoring Telemetry Heart Rate Telemetry SPO2 EKG DC Interval EKG QRS Interval EKG QT Interval Telemetry Strip Reading Pulse Oximetry Type Pulse Oximetry Monitoring 12/02/22 16:29 12/02/22 18:00 12/03/22 07:00 Temperature 97.6 F Temperature Source Temporal Artery Scan Pulse Rate 57 L Respiratory Rate 17 Blood Pressure 95/48 L Blood Pressure Mean 63 Blood Pressure Left Arm Blood Pressure Location Right Arm Blood Pressure Position Sitting O2 Sat by Pulse Oximetry 89 L 96 Oxygen Delivery Method Room Air Room Air Oxygen Flow Rate Height Weight Telemetry Type Bedside Monitor Telemetry Monitoring Started Telemetry Heart Rate 62 Telemetry SPO2 EKG DC Interval 0.20 EKG QRS Interval 0.12 H EKG QT Interval Telemetry Strip Reading sr with bbb Pulse Oximetry Type Bedside Monitor Pulse Oximetry Monitoring Continues 12/02/22 19:00 12/02/22 19:00 12/02/22 20:50 Temperature Temperature Source Pulse Rate Respiratory Rate Blood Pressure Blood Pressure Mean Blood Pressure Left Arm Blood Pressure Location Blood Pressure Position O2 Sat by Pulse Oximetry 89 L 86 L Oxygen Delivery Method Room Air Room Air Oxygen Flow Rate Height Weight Telemetry Type Bedside Monitor Telemetry Monitoring Continues Telemetry Heart Rate 54 L Telemetry SPO2 90 L EKG DC Interval 0.15 EKG QRS Interval 0.09 EKG QT Interval 0.42 H Telemetry Strip Reading SR no ectopy noted Pulse Oximetry Type Bedside Monitor Bedside Monitor Pulse Oximetry Monitoring Continues Continues 12/02/22 22:00 12/02/22 20:00 12/03/22 00:54 Temperature Temperature Source Pulse Rate 56 L Respiratory Rate 16 14 Blood Pressure 89/39 L Blood Pressure Mean 55 Blood Pressure Left Arm Blood Pressure Location Right Arm Blood Pressure Position Supine O2 Sat by Pulse Oximetry 94 L 96 Oxygen Delivery Method Nasal Cannula Room Air Nasal Cannula Oxygen Flow Rate 1 1 Height Weight Telemetry Type Telemetry Monitoring Telemetry Heart Rate Telemetry SPO2 EKG DC Interval EKG QRS Interval EKG QT Interval Telemetry Strip Reading Pulse Oximetry Type Bedside Monitor Pulse Oximetry Monitoring Continues 12/03/22 01:00 12/03/22 01:55 12/03/22 06:00 Temperature 98.6 F Temperature Source Oral Pulse Rate 54 L 54 L Respiratory Rate 14 16 Blood Pressure 91/44 L 99/47 L Blood Pressure Mean 59 64 Blood Pressure Left Arm Blood Pressure Location Right Arm Right Arm Blood Pressure Position Supine Supine O2 Sat by Pulse Oximetry 95 97 Oxygen Delivery Method Nasal Cannula Nasal Cannula Oxygen Flow Rate 1 1 Height Weight Telemetry Type Bedside Monitor Telemetry Monitoring Continues Telemetry Heart Rate 53 L Telemetry SPO2 96 EKG DC Interval 0.15 EKG QRS Interval 0.07 EKG QT Interval 0.42 H Telemetry Strip Reading SR no ectopy noted Pulse Oximetry Type Pulse Oximetry Monitoring Lab Results Lab Results: Lab Results: Last 24 Hours 12/03/22 12/02/22 12/02/22 05:32 14:38 13:30 WBC 6.93 RBC 3.85 L Hgb 12.2 Hct 37.0 D MCV 96.1 MCH 31.7 H MCHC 33.0 RDW Coeff of Ervin 13.4 Plt Count 144 Immature Gran % (Auto) 0.4 Neut % (Auto) 56.8 Lymph % (Auto) 29.0 Braxton % (Auto) 13.1 H Eos % (Auto) 0.1 Baso % (Auto) 0.6 Neut # (Auto) 3.9 Lymph # (Auto) 2.0 Braxton # (Auto) 0.9 Eos # (Auto) 0.0 Baso # (Auto) 0.0 Immature Gran # (Auto) 0.0 Puncture Site Rbrach Base Excess 1.8 O2 Saturation 99.3 H ABG pH 7.48 H ABG pCO2 34.0 L ABG pO2 136.0 H ABG HCO3 25.3 ABG Total CO2 26.3 H Hemoglobin 1.2 Oxyhemoglobin 94.6 L Carboxyhemoglobin 4.2 H Total Hemoglobin 15.8 FiO2 % 21.0 Sodium 134.3 L Potassium 3.73 Chloride 105.1 Carbon Dioxide 22.8 Anion Gap 10.13 BUN 29.2 H Creatinine 0.96 Estimated GFR (MDRD) 56.00 BUN/Creatinine Ratio 30.41 Glucose 80.7 D Lactic Acid Calcium 8.04 L Magnesium Total Bilirubin 0.33 AST 88.0 H ALT 47.6 H Alkaline Phosphatase 647.3 H D Total Creatine Kinase 285.7 H CK-MB (CK-2) 4.400 H CK-MB (CK-2) % 1.5400 Total Protein 5.78 L Albumin 3.00 L Globulin 2.78 Albumin/Globulin Ratio 1.07 Procalcitonin Free T4 Urine Color Yellow Urine Clarity Clear Urine pH 6.0 Ur Specific [place] 1.020 Urine Protein 3+ H Urine Glucose (UA) Negative Urine Ketones Trace H Urine Blood 3+ H Urine Nitrite Negative Urine Bilirubin Negative Urine Urobilinogen 0.2 Ur Leukocyte Esterase Negative Urine Microscopic WBC 5-10 Ur Squamous Epith Cells 20-30 Urine Bacteria Trace Hyaline Casts 0-2 Fine Granular Casts 5-10 Influ A Molecular Assay Influ B Molecular Assay SARS CoV-2 RNA Rapid YANELIS 12/02/22 12/02/22 12/02/22 10:45 10:30 10:28 WBC 6.54 RBC 4.82 Hgb 15.1 Hct 45.3 MCV 94.0 MCH 31.3 H MCHC 33.3 RDW Coeff of Ervin 12.9 Plt Count 162 Immature Gran % (Auto) 0.3 Neut % (Auto) 75.6 H Lymph % (Auto) 11.9 Braxton % (Auto) 11.9 H Eos % (Auto) 0.0 Baso % (Auto) 0.3 Neut # (Auto) 4.9 Lymph # (Auto) 0.8 Braxton # (Auto) 0.8 Eos # (Auto) 0.0 Baso # (Auto) 0.0 Immature Gran # (Auto) 0.0 Puncture Site Base Excess O2 Saturation ABG pH ABG pCO2 ABG pO2 ABG HCO3 ABG Total CO2 Hemoglobin Oxyhemoglobin Carboxyhemoglobin Total Hemoglobin FiO2 % Sodium 129.5 L Potassium 3.61 Chloride 97.0 L Carbon Dioxide 22.4 Anion Gap 13.71 BUN 17.5 H Creatinine 0.61 Estimated GFR (MDRD) 95.00 BUN/Creatinine Ratio 28.68 Glucose 133.5 H Lactic Acid 1.34 Calcium 9.39 Magnesium 1.85 Total Bilirubin 1.00 AST 87.4 H ALT 57.5 H Alkaline Phosphatase 1017.3 H Total Creatine Kinase 346.8 H CK-MB (CK-2) 6.660 H* CK-MB (CK-2) % 1.9200 Total Protein 8.11 Albumin 4.34 Globulin 3.77 Albumin/Globulin Ratio 1.15 Procalcitonin 0.10 H Free T4 0.82 Urine Color Urine Clarity Urine pH Ur Specific [place] Urine Protein Urine Glucose (UA) Urine Ketones Urine Blood Urine Nitrite Urine Bilirubin Urine Urobilinogen Ur Leukocyte Esterase Urine Microscopic WBC Ur Squamous Epith Cells Urine Bacteria Hyaline Casts Fine Granular Casts Influ A Molecular Assay Negative by naat Influ B Molecular Assay Negative by naat SARS CoV-2 RNA Rapid YANELIS Positive H Additional Comments Additional Comments: I have independently reviewed and interpreted the labs/EKGs/imaging ordered during this hospital stay. I have reviewed outside records that are available in our EMR that pertain to medical stay including imaging/notes/labs from previous visits. Active Medications Active Medications: Medications Generic Name Dose Route Start Last Admin Trade Name Freq PRN Reason Stop Dose Admin Acetaminophen 650 mg 12/02/22 14:33 Acetaminophen 325 Mg Tablet PO Q4H PRN Mild Pain Hydrocodone Bitart/Acetaminophen 1 tab 12/02/22 15:55 12/02/22 20:42 Hydrocodone Bit/Acetaminophen 10/325 Mg Tablet PO 1 tab BID JOSE D Administration Enoxaparin Sodium 40 mg 12/02/22 15:00 12/02/22 16:52 Enoxaparin Sodium 40 Mg/0.4 Ml Syr SUBCUT 40 mg DAILY JOSE D Administration Gabapentin 300 mg 12/02/22 15:55 12/02/22 16:52 Gabapentin 300 Mg Capsule PO 300 mg DAILY JOSE D Administration Sodium Chloride 1,000 mls @ 100 mls/hr 12/02/22 15:00 12/03/22 00:48 Sodium Chloride IV 100 mls/hr .Q10H JOSE D Administration Levothyroxine Sodium 50 mcg 12/03/22 06:30 12/03/22 06:16 Levothyroxine Sodium 50 Mcg Tablet PO 50 mcg QDAC JOSE D Administration Metoprolol Tartrate 50 mg 12/02/22 15:55 12/02/22 16:52 Metoprolol Tartrate 50 Mg Tablet PO 50 mg DAILY JOES D Administration Non-Formulary Medication 500 mg 12/03/22 09:00 Ursodiol PO DAILY JOSE D Omeprazole 40 mg 12/03/22 06:30 12/03/22 06:15 Omeprazole 20 Mg Capsule.Dr PO 40 mg QDAC JOSE D Administration Ondansetron HCl 4 mg 12/02/22 14:33 Ondansetron Hcl/Pf 4 Mg/2 Ml Sdv IVP Q6H PRN Nausea / Vomiting Sodium Chloride 1 syr 12/02/22 12:03 12/02/22 12:21 0.9% Sodium Chloride 10 Ml Disp.Syrin IVF 1 syr PRN PRN Administration To flush IV Plan Plan: 1. Acute symptomatic hyponatremia - Improved to 134 today. Likely due to dehydration and covid. NS at 100 ml/hr. Repeat in AM. 2. Acute hypoxic respiratory failure in setting of Covid 19 - Underlying CIRO could be contributing but patient dropped to 86% on RA last night and was placed on O2. CXR shows left lung base atelectasis vs pna. Likely viral with covid. Covid isolation. Will go ahead and start dex 6 mg daily in light of hypoxia. Wean when able. 3. Dehydration - BUN elevated. Continue fluids. 4. Weakness and debility- Continue fluids and replace electrolyte derangements. PT/OT ordered. UA without infection. 5. Elevated liver enzymes - Improved today. Alk phos higher than baseline. Pt has known biliary cirrhosis and monitored outpatient. Likely worsened in setting of covid. Pt has no abd pain currently. 6. Hypertension - Continue metoprolol 7. Hypothyroidism - Continue levothyroxine 8. GERD - Continue omeprazole. 9. Elevated CPK - Likely due to covid and laying in the floor all night. Very mild, not quite rhabdo. Continue fluids. DVT: Lovenox Review Statement Review Statement: I have personally discussed and reviewed the patient's visit/currently labs/imaging/decision making with Dr. Houston, my supervising attending. Greater that 50 minutes spent with patient, 50% of the time spent with this patient was devoted to counseling and coordination of care.
[2022-12-03] MEDS: NORCO 10-325 PO SCH ×2 (09:23→20:00)
[2022-12-03] MEDS: NEURONTIN PO SCH (09:23)
[2022-12-03] MEDS: LOVENOX SUBCUT SCH (09:23)
[2022-12-03] MEDS: LOPRESSOR PO SCH (09:30)
[2022-12-03] MEDS: DECADRON IVP SCH (10:12)
--- NOTE | 2022-12-03 15:40 | RS.PTINEVL ---
Subjective Patient information Date of Evaluation: 12/03/22 Date of Arrival on Unit: 12/02/22 Admitted From:: Emergency Dept Diagnosis: acute hyponatremia, COVID +, dehydration, falls at home Usual Living Arrangement: Alone Home Environment: House, Stairs (few) and Rail Medical History: Hypertension, COPD and Arthritis Medical History Comments:: hypothyroidism, GERD, osteoporosis, biliary cirrhosis LATEX ALLERGY?: No Surgical History Comments:: L CEA Medications: see chart Subjective Information/ Patient Comments:: pt states that she is hurting on R side of her ribs. pt c/o that her friends don't want to help her at home. Level of function Prior to this admission, the patient could do the following:: Independent ADL's and Independent Ambulation (with rollator ) Abilities prior to this admission: pt lives alone and unsure how much she was doing at home. States she walked with rollator and states friends sometimes take her to the grocery but that they don't want to mess with her. Current Level of Function: Partially Dependent Current Equipment Used at Home: BSC, rollator walker Pain Assessement Location Left ribs: Description: Sharp and Aching Pain Behavior: Guarding, Irritability, Grasping Site and Facial Grimacing Effects of Pain: pt states pain is from where EMS picked her up off her floor at home. B feet : Description: Burning and Sharp Pain Behavior: Facial Grimacing Pain Alleviating Factors: Medication Interventions Objective Patient Orientation: Person, Place and Situation Current Interventions: IV's and Telemetry Observation: pt with increased thoracic kyphosis. Range of Motion ROM Right Upper Extremity AROM: WFL's Left Upper Extremity AROM: WFL's Right Lower Extremity AROM: WFL's Left Lower Extremity AROM: WFL's Muscle Strength Muscle Strength Right Upper Extremity: Mild Weakness (grossly 4-/5) Left Upper Extremity: Mild Weakness (grossly 4-/5) Right Lower Extremity: Mild Weakness (hip flex 4-/5, knee flex/ext 4/5, ankle DF/PF 4-/5 ) Left Lower Extremity: Mild Weakness (hip flex 4-/5, knee flex/ext 4/5, ankle DF/PF 4-/5 ) Sensation Sensation Right Upper Extremity: Intact/Normal Left Upper Extremity: Intact/Normal Right Lower Extremity: Impaired (tingling, pain B feet ) Left Lower Extremity: Impaired (tingling, pain B feet ) Palpation Palpation Findings: Tenderness (L ribs ) Balance Sitting Balance and Reactions Static Sitting Balance: Fair Dynamic Sitting Balance: Fair Standing Balance and Reactions Static Standing Balance: Poor Dynamic Standing Balance: Poor Standing Equilibrium Reactions: Delayed Left and Delayed Right Standing Protective Reactions: Delayed Left and Delayed Right Comments Balance Assessment Comments: pt able to sit at side of bed unsupported without challenges. Functional Mobility Bed Mobility Rolling R/L: Min Assist and 1 person assist Supine to Sit: Min Assist and 1 person assist Sit to Supine: Mod Assist and 1 person assist Transfers Sit to Stand: Min Assist and 1 person assist Stand to Sit: Min Assist and 1 person assist Safety Awareness Safety Awareness: Fair YOANNA INDEX SCORE: n/a Ambulation Ambulation Assistive Device Used: Rolling Walker Orthotic/Prosthetic Device: No Distance: 18ft Assistance needed with Ambulation: Min Assist and 1 person assist Gait Deviations: Shuffling gait, Step-to gait, Forward posture, Short stride and Deviates from path Ambulation Comments: pt does not amb with antalgic gait and does not c/o any hip pain while ambulating. Factors Affecting Ambulation: Decreased Balance, Pain, Weakness, Decreased Coordination, Decreased Safety and Limited Endurance Treatment time Units charged ADL: 1 (ther act ) Time with patient Length of Evaluation: 17 Total treatment time: 34 Patient Education Education Patient Education: Activity Modification and Education of Plan of Care Teaching Recipient: Patient Teaching Methods: Discussion Comments: discussion regarding POC as well as safety with patient. Assessment Assessment Problem List:: Decreased level of function, Requires training/education, Decreased safety/Risk of falls, Weakness, Pain limits previous level of function and Cognitive status limits abilities Rehab Potential: Fair Further Therapy Indicated?: Yes Candidate for Swing Bed for Therapy Services?: Would need to reassess at a later date. Evaluation Complexity: HISTORY: Medium, EXAM OF BODY SYSTEMS: Medium, CLINICAL PRESENTATION: Medium and CLINICAL DECISION MAKING: Medium Patient's Goal(s): "I want to go home." Short Term Goals GOAL #1: pt demonstrate rolling and scooting in bed CGA Goal to be met by: 12/05/22 GOAL #2: Transfer sup to/from sit CGA Goal to be met by: 12/05/22 GOAL #3: Transfer sit to/from stand CGA Goal to be met by: 12/05/22 GOAL #4: pt amb with rwx 30ft with CGA and improved posture. Goal to be met by: 12/05/22 GOAL #5: Improve BLE strength 4 to 4+/5 Goal to be met by: 12/05/22 Alf Goals GOAL #1: pt transfer sup to/from sit to/from stand SBA Goal to be met by: 12/07/22 GOAL #2: pt amb with rwx functional household distance with SBA to CGA Goal to be met by: 12/07/22 GOAL #3: Improve dyn stand balance fair Goal to be met by: 12/07/22 Plan Plan of Care: Therapeutic EX and Therapeutic Activity Other:: gait training Frequency of Treatment: 1-2 X day, as tolerated Duration of Treatment: 1 Week Anticipated Discharge Destination: Home Treatment Diagnosis (ICD 10 Codes): gait difficulty R 26.2 impaired balance R 26.81 weakness M62.81 COVID h/o falls R 29.6 Has the Physician been added for Co-signature?: Yes
[2022-12-03] MEDS ORDERED: ULTRAM PO STA (21:20)
[2022-12-03] MEDS: LIDODERM 5 % PATCH TP SCH (21:37)
[2022-12-04] MEDS: SODIUM CHLORIDE 1,000 ML IV SCH ×2 (00:36→09:42)
[2022-12-04 05:18] LABS: HEMOGLOBIN 11.3 g/dl (12.0-16.0); IMMATURE GRANULOCYTE % (AUTO) 0.4 % (0.0-5.0); LYMPHOCYTES # (AUTO) 1.2 K/uL (0.60-3.4); LYMPHOCYTES % (AUTO) 25.9 (10.0-50.0); MEAN CORPUSCULAR HEMOGLOBIN 32.8 pg (27.0-31.0); MEAN CORPUSCULAR HGB CONC 33.2 (31.8-35.4); MEAN CORPUSCULAR VOLUME 98.6 fl (81.0-99.0); MONOCYTES # (AUTO) 0.6 K/uL (0.4-2.0); MONOCYTES % (AUTO) 12.1 (0-10); NEUTROPHILS # (AUTO) 2.8 K/ul (2.0-6.9); NEUTROPHILS % (AUTO) 61.6 % (42.2-75.2); PLATELET COUNT 128 10^3/uL (140-440); RDW COEFFICIENT OF VARIATION 13.5 % (11.6-14.8); RED BLOOD COUNT 3.45 10^6/ul (4.20-5.40); WHITE BLOOD COUNT 4.55 K/ul (4.6-10.2)
[2022-12-04] MEDS: SYNTHROID PO SCH (05:33)
[2022-12-04] MEDS: PRILOSEC PO SCH (05:33)
[2022-12-04 05:58] LABS: ALANINE AMINOTRANSFERASE 40.2 U/L (0-35); ALBUMIN 2.78 g/dL (3.5-5.0); ALKALINE PHOSPHATASE 579.4 U/L (53-141); ASPARTATE AMINO TRANSFERASE 82.4 U/L (14-36); BILIRUBIN,TOTAL 0.29 mg/dL (0.2-1.3); BLOOD UREA NITROGEN 19.1 mg/dL (7-17); CALCIUM 8.04 mg/dL (8.4-10.2); CARBON DIOXIDE 21.8 mmol/L (22-30.0); CHLORIDE 112.5 mmol/L (98-107); CREATININE 0.58 mg/dL (0.60-1.30); GLUCOSE 99.9 mg/dL (74-106); POTASSIUM 3.82 mmol/L (3.5-5.1); SODIUM 137.7 mmol/L (134.5-145); TOTAL PROTEIN 5.56 g/dL (6.3-8.2)
[2022-12-04] MEDS ORDERED: ACTIGALL PO SCH (09:00)
[2022-12-04] MEDS ORDERED: DULCOLAX PO ONE (09:22)
--- NOTE | 2022-12-04 09:30 | PCM.PROG ---
Date/Time Seen Date Seen by Provider: 12/04/22 Time Seen by Provider: 08:30 Provider Provider[facility] Chief Complaint Chief Complaint: COVID+, HYPONATREMIA, FLUID DEFICIT, Subjective Subjective: Patient continues to be on and off 1L of oxygen, mostly needs during the night. She has been eating good. States she hasn't had a BM since she's been here and would like something for it. She is alert, oriented, able to answer questions appropriately today. She is open to going somewhere for some extended rehab due to her weakness and increased fall risk. She still complains of right hip pain but states this is chronic for her. She complains of right rib pain as well but per therapy she did well with the gait belt and had no complaints then. Objective Appearance: Positive No Apparent Distress, Alert and Oriented x3 and Thin Chest/Lungs: Positive Clear to Auscultation Bilaterally; Negative Rales, Rhonci or Wheezes Heart: Positive RRR GI/: Positive Soft, Nontender, Bowel Sounds Normal and No Distention Musculoskeletal: Positive Other (+pain with palpation of right lateral ribs, no bruising noted. ) Neurological: Positive Cranial Nerves Intact, Alert, Oriented and Other (+generalized weakness ) Vital Signs Vital Signs: Vital Signs: Last 24 Hours 12/03/22 10:00 12/03/22 14:00 12/03/22 10:42 Temperature 98.3 F 98.3 F Temperature Source Oral Oral Pulse Rate 63 72 Respiratory Rate 17 18 Blood Pressure 107/46 L 114/50 L Blood Pressure Mean 66 71 Blood Pressure Location Right Arm Right Arm Blood Pressure Position Sitting Sitting O2 Sat by Pulse Oximetry 92 L 90 L Oxygen Delivery Method Room Air Room Air Nasal Cannula Oxygen Flow Rate 1 Telemetry Type Telemetry Monitoring Telemetry Heart Rate Telemetry SPO2 EKG SC Interval EKG QRS Interval EKG QT Interval Telemetry Strip Reading Pulse Oximetry Type Pulse Oximetry Monitoring 12/03/22 13:00 12/03/22 13:00 12/03/22 18:00 Temperature 98.4 F Temperature Source Oral Pulse Rate 75 Respiratory Rate 16 Blood Pressure 131/62 Blood Pressure Mean 85 Blood Pressure Location Right Arm Blood Pressure Position Sitting O2 Sat by Pulse Oximetry 92 L 94 L Oxygen Delivery Method Room Air Room Air Oxygen Flow Rate Telemetry Type Bedside Monitor Telemetry Monitoring Continues Telemetry Heart Rate 68 Telemetry SPO2 EKG SC Interval 0.14 EKG QRS Interval 0.08 EKG QT Interval Telemetry Strip Reading NSR Pulse Oximetry Type Bedside Monitor Pulse Oximetry Monitoring Continues 12/03/22 14:00 12/03/22 19:33 12/03/22 19:00 Temperature Temperature Source Pulse Rate Respiratory Rate Blood Pressure Blood Pressure Mean Blood Pressure Location Blood Pressure Position O2 Sat by Pulse Oximetry 96 Oxygen Delivery Method Room Air Room Air Oxygen Flow Rate Telemetry Type Bedside Monitor Telemetry Monitoring Continues Telemetry Heart Rate 70 Telemetry SPO2 EKG SC Interval 0.14 EKG QRS Interval 0.10 EKG QT Interval 0.36 Telemetry Strip Reading NSR no ectopy noted Pulse Oximetry Type Pulse Oximetry Monitoring 12/03/22 19:00 12/03/22 22:00 12/03/22 20:00 Temperature 98.2 F Temperature Source Oral Pulse Rate 64 Respiratory Rate 16 16 Blood Pressure 140/51 L Blood Pressure Mean 80 Blood Pressure Location Right Arm Blood Pressure Position Supine O2 Sat by Pulse Oximetry 92 L 93 L Oxygen Delivery Method Room Air Room Air Room Air Oxygen Flow Rate Telemetry Type Telemetry Monitoring Telemetry Heart Rate Telemetry SPO2 EKG SC Interval EKG QRS Interval EKG QT Interval Telemetry Strip Reading Pulse Oximetry Type Bedside Monitor Pulse Oximetry Monitoring Continues 12/04/22 01:00 12/04/22 01:00 12/04/22 02:00 Temperature Temperature Source Pulse Rate 60 Respiratory Rate 16 Blood Pressure 140/63 Blood Pressure Mean 88 Blood Pressure Location Right Arm Blood Pressure Position Supine O2 Sat by Pulse Oximetry 98 97 Oxygen Delivery Method Nasal Cannula Nasal Cannula Oxygen Flow Rate 1 1 Telemetry Type Bedside Monitor Telemetry Monitoring Continues Telemetry Heart Rate 60 Telemetry SPO2 98 EKG SC Interval 0.16 EKG QRS Interval 0.09 EKG QT Interval 0.39 Telemetry Strip Reading NSR no ectopy noted Pulse Oximetry Type Bedside Monitor Pulse Oximetry Monitoring Continues 12/04/22 02:35 12/04/22 03:04 12/04/22 05:35 Temperature 98.8 F Temperature Source Oral Pulse Rate 60 Respiratory Rate 16 Blood Pressure 169/71 H Blood Pressure Mean 103 Blood Pressure Location Right Arm Blood Pressure Position Sitting O2 Sat by Pulse Oximetry 91 L Oxygen Delivery Method Room Air Oxygen Flow Rate Telemetry Type Bedside Monitor Bedside Monitor Telemetry Monitoring Continues Telemetry Heart Rate Telemetry SPO2 EKG SC Interval EKG QRS Interval EKG QT Interval Telemetry Strip Reading pt had episode of bradycardia at a rate of approximately 40 lasting for approximately 10-12 seconds NSR, no ectopy noted Pulse Oximetry Type Pulse Oximetry Monitoring 12/04/22 05:38 12/04/22 07:00 12/04/22 07:00 Temperature Temperature Source Pulse Rate Respiratory Rate Blood Pressure Blood Pressure Mean Blood Pressure Location Blood Pressure Position O2 Sat by Pulse Oximetry 96 93 L Oxygen Delivery Method Nasal Cannula Nasal Cannula Oxygen Flow Rate 1 1 Telemetry Type Bedside Monitor Telemetry Monitoring Continues Telemetry Heart Rate 60 Telemetry SPO2 93 EKG SC Interval 0.14 EKG QRS Interval 0.05 L EKG QT Interval Telemetry Strip Reading SR Pulse Oximetry Type Bedside Monitor Pulse Oximetry Monitoring Continues Lab Results Lab Results: Lab Results: Last 24 Hours 12/04/22 05:08 WBC 4.55 L RBC 3.45 L Hgb 11.3 L Hct 34.0 L MCV 98.6 MCH 32.8 H MCHC 33.2 RDW Coeff of Ervin 13.5 Plt Count 128 L Immature Gran % (Auto) 0.4 Neut % (Auto) 61.6 Lymph % (Auto) 25.9 Wright % (Auto) 12.1 H Eos % (Auto) 0.0 Baso % (Auto) 0.0 Neut # (Auto) 2.8 Lymph # (Auto) 1.2 Wright # (Auto) 0.6 Eos # (Auto) 0.0 Baso # (Auto) 0.0 Immature Gran # (Auto) 0.0 Sodium 137.7 Potassium 3.82 Chloride 112.5 H Carbon Dioxide 21.8 L Anion Gap 7.22 BUN 19.1 H Creatinine 0.58 L Estimated GFR (MDRD) 101.00 BUN/Creatinine Ratio 32.93 Glucose 99.9 Calcium 8.04 L Total Bilirubin 0.29 AST 82.4 H ALT 40.2 H Alkaline Phosphatase 579.4 H D Total Protein 5.56 L Albumin 2.78 L Globulin 2.78 Albumin/Globulin Ratio 1.00 Additional Comments Additional Comments: I have independently reviewed and interpreted the labs/EKGs/imaging ordered during this hospital stay. I have reviewed outside records that are available in our EMR that pertain to medical stay including imaging/notes/labs from previous visits. Active Medications Active Medications: Medications Generic Name Dose Route Start Last Admin Trade Name Freq PRN Reason Stop Dose Admin Acetaminophen 650 mg 12/02/22 14:33 Acetaminophen 325 Mg Tablet PO Q4H PRN Mild Pain Hydrocodone Bitart/Acetaminophen 1 tab 12/02/22 15:55 12/03/22 20:00 Hydrocodone Bit/Acetaminophen 10/325 Mg Tablet PO 1 tab BID JOSE D Administration Bisacodyl 5 mg 12/04/22 09:22 Bisacodyl 5 Mg Tablet. PO 12/04/22 09:23 ONCE ONE Dexamethasone Sodium Phosphate 6 mg 12/03/22 09:20 12/03/22 10:12 Dexamethasone Sod Phos 10 Mg/Ml Inj IVP 6 mg DAILY JOSE D Administration Enoxaparin Sodium 40 mg 12/02/22 15:00 12/03/22 09:23 Enoxaparin Sodium 40 Mg/0.4 Ml Syr SUBCUT 40 mg DAILY JOSE D Administration Gabapentin 300 mg 12/02/22 15:55 12/03/22 09:23 Gabapentin 300 Mg Capsule PO 300 mg DAILY JOSE D Administration Sodium Chloride 1,000 mls @ 100 mls/hr 12/02/22 15:00 12/04/22 00:36 Sodium Chloride IV 100 mls/hr .Q10H JOSE D Administration Levothyroxine Sodium 50 mcg 12/03/22 06:30 12/04/22 05:33 Levothyroxine Sodium 50 Mcg Tablet PO 50 mcg QDAC JOSE D Administration Lidocaine 1 patch 12/03/22 21:25 12/03/22 21:37 Lidocaine 5% Patch TP 1 patch DAILY JOSE D Administration Metoprolol Tartrate 50 mg 12/02/22 15:55 12/03/22 09:30 Metoprolol Tartrate 50 Mg Tablet PO Not Given DAILY JOSE D Omeprazole 40 mg 12/03/22 06:30 12/04/22 05:33 Omeprazole 20 Mg Capsule. PO 40 mg QDAC JOSE D Administration Ondansetron HCl 4 mg 12/02/22 14:33 Ondansetron Hcl/Pf 4 Mg/2 Ml Sdv IVP Q6H PRN Nausea / Vomiting Sodium Chloride 1 syr 12/02/22 12:03 12/02/22 12:21 0.9% Sodium Chloride 10 Ml Disp.Syrin IVF 1 syr PRN PRN Administration To flush IV Plan Plan: 1. Acute symptomatic hyponatremia - Resolved. Likely due to dehydration and covid. Stop fluids. 2. Acute hypoxic respiratory failure in setting of Covid 19 - Underlying CIRO could be contributing but patient dropped to 86% on RA was placed on O2. CXR shows left lung base atelectasis vs pna. Likely viral with covid. Covid isolation. Continue dex 6 mg daily in light of hypoxia. Wean when able. 3. Dehydration - Resolved. BUN elevated. Stop fluids. 4. Weakness and debility- PT/OT ordered. UA without infection. 5. Elevated liver enzymes - Improved. Pt has known biliary cirrhosis and monitored outpatient. Likely worsened in setting of covid. Pt has no abd pain currently. 6. Hypertension - Continue metoprolol 7. Hypothyroidism - Continue levothyroxine 8. GERD - Continue omeprazole. 9. Elevated CPK - Improved. Likely due to covid and laying in the floor all night. Stop fluids. 10. Right rib pain and right hip pain - X rays ordered. DVT: Darian Dispo - CM working on rehab placement Review Statement Review Statement: I have personally discussed and reviewed the patient's visit/currently labs/imaging/decision making with Dr. Houston, my supervising attending. Greater that 50 minutes spent with patient, 50% of the time spent with this patient was devoted to counseling and coordination of care.
[2022-12-04] MEDS: DECADRON IVP SCH (09:41)
[2022-12-04] MEDS: LOVENOX SUBCUT SCH (09:41)
[2022-12-04] MEDS: LIDODERM 5 % PATCH TP SCH (09:42)
[2022-12-04] MEDS: NEURONTIN PO SCH ×2 (09:43→20:28)
[2022-12-04] MEDS: LOPRESSOR PO SCH (09:43)
[2022-12-04] MEDS: NORCO 10-325 PO SCH ×2 (09:44→20:28)
--- NOTE | 2022-12-04 11:45 | DI ---
EXAM: PELVIS AND BILATERAL HIPS RADIOGRAPH. HISTORY: Pelvic pain and bilateral hip pain. TECHNIQUE: Five views. Frontal pelvis. Frontal and lateral right hip. Frontal and lateral left hip . COMPARISON: None. FINDINGS: Diffuse osteopenia is identified. There is no fracture or dislocation. The soft tissues are normal. Age-related degerative changes are noted. There is no lytic or blastic lesion. There is no radiopaque foreign body. IMPRESSION: Osteopenia and age-related degenerative changes are identified. No acute fracture or dislocation.
--- NOTE | 2022-12-04 12:00 | DI ---
EXAM: UNILATERAL RIGHT RIBS 12/04/2022 HISTORY: Fall COMPARISON: 12/02/2022 FINDINGS / IMPRESSION: Cardiomediastinal contours appear stable. The right lung appears well aerate d. The osseous structures appear intact. There is no displaced rib fracture.
[2022-12-04] MEDS: COLACE PO SCH (20:28)
[2022-12-05 05:26] LABS: BASOPHILS % (AUTO) 0.2 % (0.0-3.0); HEMATOCRIT 37.1 % (37.0-47.0); HEMOGLOBIN 12.2 g/dl (12.0-16.0); IMMATURE GRANULOCYTE # (AUTO) 0.1 (0.0-1.0); IMMATURE GRANULOCYTE % (AUTO) 0.8 % (0.0-5.0); LYMPHOCYTES # (AUTO) 1.2 K/uL (0.60-3.4); LYMPHOCYTES % (AUTO) 19.8 (10.0-50.0); MEAN CORPUSCULAR HEMOGLOBIN 32.8 pg (27.0-31.0); MEAN CORPUSCULAR HGB CONC 32.9 (31.8-35.4); MEAN CORPUSCULAR VOLUME 99.7 fl (81.0-99.0); MONOCYTES # (AUTO) 0.6 K/uL (0.4-2.0); MONOCYTES % (AUTO) 9.5 (0-10); NEUTROPHILS # (AUTO) 4.1 K/ul (2.0-6.9); NEUTROPHILS % (AUTO) 69.7 % (42.2-75.2); PLATELET COUNT 140 10^3/uL (140-440); RDW COEFFICIENT OF VARIATION 13.6 % (11.6-14.8); RED BLOOD COUNT 3.72 10^6/ul (4.20-5.40); WHITE BLOOD COUNT 5.91 K/ul (4.6-10.2)
[2022-12-05 05:37] LABS: ALANINE AMINOTRANSFERASE 49.1 U/L (0-35); ALBUMIN 3.07 g/dL (3.5-5.0); ASPARTATE AMINO TRANSFERASE 90.9 U/L (14-36); BILIRUBIN,TOTAL 0.36 mg/dL (0.2-1.3); BLOOD UREA NITROGEN 16.4 mg/dL (7-17); CALCIUM 8.45 mg/dL (8.4-10.2); CARBON DIOXIDE 25.1 mmol/L (22-30.0); CHLORIDE 108.8 mmol/L (98-107); CREATININE 0.64 mg/dL (0.60-1.30); GLUCOSE 93.8 mg/dL (74-106); POTASSIUM 3.9 mmol/L (3.5-5.1); SODIUM 140.1 mmol/L (134.5-145); TOTAL PROTEIN 5.96 g/dL (6.3-8.2)
[2022-12-05] MEDS: PRILOSEC PO SCH (06:18)
[2022-12-05] MEDS: SYNTHROID PO SCH (06:19)
[2022-12-05] MEDS: NORCO 10-325 PO SCH ×2 (08:39→20:17)
[2022-12-05] MEDS: LOPRESSOR PO SCH (08:39)
[2022-12-05] MEDS: NEURONTIN PO SCH ×2 (08:39→20:18)
[2022-12-05] MEDS: COLACE PO SCH ×2 (08:39→20:18)
[2022-12-05] MEDS: LIDODERM 5 % PATCH TP SCH (08:41)
[2022-12-05] MEDS: LOVENOX SUBCUT SCH (08:42)
[2022-12-05] MEDS: DECADRON IVP SCH (08:57)
[2022-12-05] MEDS ORDERED: DUONEB NEB PRN (09:28)
--- NOTE | 2022-12-05 09:42 | PCM.PROG ---
Date/Time Seen Date Seen by Provider: 12/05/22 Time Seen by Provider: 09:10 Provider Provider[facility] Chief Complaint Chief Complaint: COVID+, HYPONATREMIA, FLUID DEFICIT, Subjective Subjective: Patient continues to be on and off 1L of oxygen, mostly needs during the night. She has been eating good. Had a BM yesterday. She is alert, oriented, able to answer questions appropriately today. She is open to going somewhere for some extended rehab due to her weakness and increased fall risk. She still complains of right hip pain but states this is chronic for her. X rays were negative. No acute events overnight. Objective Appearance: Positive No Apparent Distress, Alert and Oriented x3 and Thin Chest/Lungs: Positive Clear to Auscultation Bilaterally; Negative Rales, Rhonci or Wheezes Heart: Positive RRR GI/: Positive Soft, Nontender, Bowel Sounds Normal and No Distention Musculoskeletal: Positive Other (+pain with palpation of right lateral ribs, no bruising noted. ) Neurological: Positive Cranial Nerves Intact, Alert, Oriented and Other (+generalized weakness ) Vital Signs Vital Signs: Vital Signs: Last 24 Hours 12/04/22 09:49 12/04/22 10:00 12/04/22 13:00 Temperature Temperature Source Pulse Rate 79 Respiratory Rate 19 Blood Pressure 183/77 H Blood Pressure Mean 112 Blood Pressure Location Right Arm Blood Pressure Position Sitting O2 Sat by Pulse Oximetry 94 L 96 95 Oxygen Delivery Method Nasal Cannula Room Air Room Air Oxygen Flow Rate 1 Telemetry Type Telemetry Monitoring Telemetry Heart Rate Telemetry SPO2 EKG TN Interval EKG QRS Interval Telemetry Strip Reading Pulse Oximetry Type Bedside Monitor Pulse Oximetry Monitoring Continues 12/04/22 13:00 12/04/22 14:00 12/04/22 14:00 Temperature Temperature Source Pulse Rate 60 Respiratory Rate 17 Blood Pressure 123/57 L Blood Pressure Mean 79 Blood Pressure Location Right Arm Blood Pressure Position Sitting O2 Sat by Pulse Oximetry 93 L 94 L Oxygen Delivery Method Room Air Room Air Oxygen Flow Rate Telemetry Type Bedside Monitor Telemetry Monitoring Continues Telemetry Heart Rate 56 L Telemetry SPO2 95 EKG TN Interval 0.16 EKG QRS Interval 0.05 L Telemetry Strip Reading SR Pulse Oximetry Type Pulse Oximetry Monitoring 12/04/22 17:55 12/04/22 19:00 12/04/22 19:00 Temperature Temperature Source Pulse Rate 61 Respiratory Rate 16 Blood Pressure 157/67 H Blood Pressure Mean 97 Blood Pressure Location Right Arm Blood Pressure Position Sitting O2 Sat by Pulse Oximetry 98 97 Oxygen Delivery Method Nasal Cannula Nasal Cannula Oxygen Flow Rate 1 1 Telemetry Type Bedside Monitor Telemetry Monitoring Continues Telemetry Heart Rate 59 L Telemetry SPO2 97 EKG TN Interval 0.15 EKG QRS Interval 0.08 Telemetry Strip Reading SB Pulse Oximetry Type Bedside Monitor Pulse Oximetry Monitoring Continues 12/04/22 20:00 12/04/22 20:00 12/04/22 20:48 Temperature 97.9 F Temperature Source Oral Pulse Rate 58 L Respiratory Rate 16 Blood Pressure 157/68 H Blood Pressure Mean 97 Blood Pressure Location Right Arm Blood Pressure Position Supine O2 Sat by Pulse Oximetry 97 97 Oxygen Delivery Method Nasal Cannula Nasal Cannula Nasal Cannula Oxygen Flow Rate 1 1 1 Telemetry Type Telemetry Monitoring Telemetry Heart Rate Telemetry SPO2 EKG TN Interval EKG QRS Interval Telemetry Strip Reading Pulse Oximetry Type Pulse Oximetry Monitoring 12/05/22 00:49 12/05/22 01:00 12/05/22 01:56 Temperature Temperature Source Pulse Rate 53 L Respiratory Rate 14 Blood Pressure Blood Pressure Mean Blood Pressure Location Blood Pressure Position O2 Sat by Pulse Oximetry 96 98 Oxygen Delivery Method Nasal Cannula Nasal Cannula Oxygen Flow Rate 1 1 Telemetry Type Bedside Monitor Telemetry Monitoring Continues Telemetry Heart Rate 51 L Telemetry SPO2 96 EKG TN Interval 0.15 EKG QRS Interval 0.08 Telemetry Strip Reading SB Pulse Oximetry Type Remote Telemetry Pulse Oximetry Monitoring Continues 12/05/22 04:48 12/05/22 05:25 12/05/22 09:21 Temperature 97.3 F L Temperature Source Pulse Rate 53 L Respiratory Rate 15 Blood Pressure 165/74 H Blood Pressure Mean 104 Blood Pressure Location Right Arm Blood Pressure Position Supine O2 Sat by Pulse Oximetry 98 98 Oxygen Delivery Method Nasal Cannula Nasal Cannula Nasal Cannula Oxygen Flow Rate 1 1 1 Telemetry Type Telemetry Monitoring Telemetry Heart Rate Telemetry SPO2 EKG TN Interval EKG QRS Interval Telemetry Strip Reading Pulse Oximetry Type Pulse Oximetry Monitoring Lab Results Lab Results: Lab Results: Last 24 Hours 12/05/22 05:16 WBC 5.91 RBC 3.72 L Hgb 12.2 Hct 37.1 MCV 99.7 H MCH 32.8 H MCHC 32.9 RDW Coeff of Ervin 13.6 Plt Count 140 Immature Gran % (Auto) 0.8 Neut % (Auto) 69.7 Lymph % (Auto) 19.8 [place] % (Auto) 9.5 Eos % (Auto) 0.0 Baso % (Auto) 0.2 Neut # (Auto) 4.1 Lymph # (Auto) 1.2 [place] # (Auto) 0.6 Eos # (Auto) 0.0 Baso # (Auto) 0.0 Immature Gran # (Auto) 0.1 Sodium 140.1 Potassium 3.90 Chloride 108.8 H Carbon Dioxide 25.1 Anion Gap 10.10 BUN 16.4 Creatinine 0.64 Estimated GFR (MDRD) 90.00 BUN/Creatinine Ratio 25.62 Glucose 93.8 Calcium 8.45 Total Bilirubin 0.36 AST 90.9 H ALT 49.1 H Alkaline Phosphatase 642.0 H D Total Protein 5.96 L Albumin 3.07 L Globulin 2.89 Albumin/Globulin Ratio 1.06 Additional Comments Additional Comments: I have independently reviewed and interpreted the labs/EKGs/imaging ordered during this hospital stay. I have reviewed outside records that are available in our EMR that pertain to medical stay including imaging/notes/labs from previous visits. Active Medications Active Medications: Medications Generic Name Dose Route Start Last Admin Trade Name Freq PRN Reason Stop Dose Admin Acetaminophen 650 mg 12/02/22 14:33 Acetaminophen 325 Mg Tablet PO Q4H PRN Mild Pain Hydrocodone Bitart/Acetaminophen 1 tab 12/02/22 15:55 12/05/22 08:39 Hydrocodone Bit/Acetaminophen 10/325 Mg Tablet PO 1 tab BID JOSE D Administration Albuterol/Ipratropium 3 ml 12/05/22 09:28 Ipratropium/Albuterol Vial.Neb NEB RTQ6H PRN Wheezing Dexamethasone Sodium Phosphate 6 mg 12/03/22 09:20 12/05/22 08:57 Dexamethasone Sod Phos 10 Mg/Ml Inj IVP 6 mg DAILY JOSE D Administration Docusate Sodium 100 mg 12/04/22 21:00 12/05/22 08:39 Docusate Sodium 100 Mg Capsule PO 100 mg BID JOSE D Administration Enoxaparin Sodium 40 mg 12/02/22 15:00 12/05/22 08:42 Enoxaparin Sodium 40 Mg/0.4 Ml Syr SUBCUT 40 mg DAILY JOSE D Administration Gabapentin 300 mg 12/04/22 21:00 12/05/22 08:39 Gabapentin 300 Mg Capsule PO 300 mg BID JOSE D Administration Levothyroxine Sodium 50 mcg 12/03/22 06:30 12/05/22 06:19 Levothyroxine Sodium 50 Mcg Tablet PO 50 mcg QDAC JOSE D Administration Lidocaine 1 patch 12/03/22 21:25 12/05/22 08:41 Lidocaine 5% Patch TP 1 patch DAILY JOSE D Administration Metoprolol Tartrate 50 mg 12/02/22 15:55 12/05/22 08:39 Metoprolol Tartrate 50 Mg Tablet PO 50 mg DAILY JOSE D Administration Omeprazole 40 mg 12/03/22 06:30 12/05/22 06:18 Omeprazole 20 Mg Capsule. PO 40 mg QDAC JOES D Administration Ondansetron HCl 4 mg 12/02/22 14:33 Ondansetron Hcl/Pf 4 Mg/2 Ml Sdv IVP Q6H PRN Nausea / Vomiting Sodium Chloride 1 syr 12/02/22 12:03 12/04/22 20:32 0.9% Sodium Chloride 10 Ml Disp.Syrin IVF 1 syr PRN PRN Administration To flush IV Plan Plan: 1. Acute symptomatic hyponatremia - Resolved. Likely due to dehydration and covid. 2. Acute hypoxic respiratory failure in setting of Covid 19 - Underlying CIRO could be contributing but patient dropped to 86% on RA was placed on O2. CXR shows left lung base atelectasis vs pna. Likely viral with covid. Covid isolation. Continue dex 6 mg daily in light of hypoxia. Wean when able. 3. Dehydration - Resolved. BUN elevated. Stop fluids. 4. Weakness and debility- PT/OT ordered. UA without infection. 5. Elevated liver enzymes - Improved. Pt has known biliary cirrhosis and monitored outpatient. Likely worsened in setting of covid. Pt has no abd pain currently. 6. Hypertension - Continue metoprolol 7. Hypothyroidism - Continue levothyroxine 8. GERD - Continue omeprazole. 9. Elevated CPK - Improved. Likely due to covid and laying in the floor all night. Stop fluids. 10. Right rib pain and right hip pain - X rays negative. Continue pain meds and therapy. DVT: Lovenox Dispo - CM working on rehab placement, discharge delayed due to this Review Statement Review Statement: I have personally discussed and reviewed the patient's visit/currently labs/imaging/decision making with Dr. Houston, my supervising attending. Greater that 50 minutes spent with patient, 50% of the time spent with this patient was devoted to counseling and coordination of care.
[2022-12-05] MEDS: TYLENOL PO PRN (15:08)
--- NOTE | 2022-12-05 16:31 | RS.OTCNOTE ---
OT Case Note Date of Note: 12/05/22 Title: OT case Note Note: Pt is to transfer to [facility] tomorrow. Number of visits approved by Insurance: n/a Expiration date of current Insurance Approval:: n/a
[2022-12-06 05:16] LABS: HEMATOCRIT 44.1 % (37.0-47.0); HEMOGLOBIN 14.5 g/dl (12.0-16.0); IMMATURE GRANULOCYTE # (AUTO) 0.1 (0.0-1.0); IMMATURE GRANULOCYTE % (AUTO) 1.3 % (0.0-5.0); LYMPHOCYTES # (AUTO) 1.2 K/uL (0.60-3.4); LYMPHOCYTES % (AUTO) 16.3 (10.0-50.0); MEAN CORPUSCULAR HEMOGLOBIN 32.4 pg (27.0-31.0); MEAN CORPUSCULAR HGB CONC 32.9 (31.8-35.4); MEAN CORPUSCULAR VOLUME 98.7 fl (81.0-99.0); MONOCYTES # (AUTO) 0.4 K/uL (0.4-2.0); MONOCYTES % (AUTO) 5.6 (0-10); NEUTROPHILS # (AUTO) 5.8 K/ul (2.0-6.9); NEUTROPHILS % (AUTO) 76.8 % (42.2-75.2); PLATELET COUNT 133 10^3/uL (140-440); RDW COEFFICIENT OF VARIATION 13.6 % (11.6-14.8); RED BLOOD COUNT 4.47 10^6/ul (4.20-5.40); WHITE BLOOD COUNT 7.55 K/ul (4.6-10.2)
[2022-12-06 05:24] LABS: ALANINE AMINOTRANSFERASE 81.5 U/L (0-35); ALBUMIN 3.96 g/dL (3.5-5.0); ALKALINE PHOSPHATASE 855.5 U/L (53-141); ASPARTATE AMINO TRANSFERASE 139.4 U/L (14-36); BILIRUBIN,TOTAL 0.76 mg/dL (0.2-1.3); CALCIUM 9.17 mg/dL (8.4-10.2); CARBON DIOXIDE 32.2 mmol/L (22-30.0); CHLORIDE 101.2 mmol/L (98-107); CREATININE 0.61 mg/dL (0.60-1.30); GLUCOSE 85.2 mg/dL (74-106); POTASSIUM 3.93 mmol/L (3.5-5.1); SODIUM 138.1 mmol/L (134.5-145); TOTAL PROTEIN 7.53 g/dL (6.3-8.2)
[2022-12-06] MEDS: PRILOSEC PO SCH (05:45)
[2022-12-06] MEDS: SYNTHROID PO SCH (05:45)
[2022-12-06] MEDS: TYLENOL PO PRN (05:52)
[2022-12-06] MEDS ORDERED: NORVASC PO SCH (09:00)
[2022-12-06] MEDS: DECADRON IVP SCH (09:08)
[2022-12-06] MEDS: LIDODERM 5 % PATCH TP SCH (09:15)
[2022-12-06] MEDS: COLACE PO SCH (09:15)
[2022-12-06] MEDS: LOPRESSOR PO SCH (09:15)
[2022-12-06] MEDS: NORCO 10-325 PO SCH (09:15)
[2022-12-06] MEDS: NEURONTIN PO SCH (09:15)
[2022-12-06] MEDS: LOVENOX SUBCUT SCH (09:16)
[2022-12-06] MEDS ORDERED: DECADRON IM SCH (09:30)
--- NOTE | 2022-12-06 10:19 | RS.OTINEVL ---
Subjective Patient information Date of Evaluation: 12/06/22 Date of Arrival on Unit: 12/02/22 Admitted From:: Emergency Dept Diagnosis: Acute hyponatremia, GERD, Osteoporosis, Biliary cirrhosis PRECAUTIONS: Fall risk Usual Living Arrangement: Alone Living Arrangement Comments: Pt living alone at home. Home Environment: House, Stairs (few) and Rail Medical History: Hypertension, COPD and Arthritis Medical History Comments:: hypothyroidism, GERD, osteoporosis, biliary cirrhosis LATEX ALLERGY?: No Surgical History Comments:: L CEA Medications: see chart Subjective Information/ Patient Comments:: "I am hurting so bad right now that I can't eat." "It's an 12/05." Level of function Prior to this admission, the patient could do the following:: Independent ADL's and Independent Ambulation (with rollator ) Current Level of Function: Partially Dependent Current Equipment Used at Home: BSC, rollator walker Pain Assessment Pain Pain Score: 8 Side: right Pain Location Body Site: Hip Pain Aggravating Factors: ADL's, Changing Position, Standing, Sitting and Walking Pain Alleviating Factors: Medication and Position Change Interventions Objective Observation: Pt is able to move BUE is WFL. Pt is weak in BUE. Pt refuses to sit EOB because of her right hip pain. Pt refuses to get out of bed. Interventions ROM Right Upper Extremity AROM: WFL's Left Upper Extremity AROM: WFL's Strength Right Upper Extremity: Mild Weakness Left Upper Extremity: Mild Weakness Comments:: 4-/5 in BUE. Sensation Right Upper Extremity: Intact/Normal Left Upper Extremity: Intact/Normal Balance Sitting Balance Static Sitting Balance: Fair Dynamic Sitting Balance: Fair Standing Balance Static Standing Balance: Poor Dynamic Standing Balance: Poor ADL Skills Self Feeding Self Feeding: Independent Grooming Grooming: Min Assist Grooming Set-up: Sitting Dressing Dressing UE: Min Assist Dressing LE: Max Assist Toilet Management Toilet Hygiene: CGA Toilet Clothing Management: Min Assist Functional Mobility Ambulation Assistance needed with Ambulation: 1 person assist Comments:: Pt reports one person helps her complete toilet transfers while she uses the Rolling walker. Safety Awareness Safety Awareness: Fair YOANNA INDEX SCORE: . Additional Treatment Performed Time with patient Length of Evaluation: 19 Total treatment time: 20 Activities Do you enjoy playing games?: No Would you be interested in leaving your room for activities?: No Would you enjoy group activities?: No Do you have difficulty with your vision?: No What types of things do you enjoy doing? Any Hobbies?: TV, cell phone Patient Interests:: Watching Television and Visiting/Socializing Patient Education Patient Education: Education of diagnosis and Education of Plan of Care Teaching Recipient: Patient Teaching Methods: Discussion and Demonstration Assessment Problem List:: Decreased level of function, Requires training/education, Decreased safety/Risk of falls and Pain limits previous level of function Rehab Potential: Fair Evaluation Complexity: HISTORY: Medium, EXAM OF BODY SYSTEMS: Medium and CLINICAL DECISION MAKING: Medium Patient's Goal(s): Pt reports she wants to go to rehab to get back home. Short Term Goals Goals GOAL 1: No goals at this time. Plan Plan of Care: Therapeutic EX, Neuromuscular Re-Educ, Therapeutic Activity and Self-Care/Home Management Anticipated Discharge Destination: [facility] Treatment Diagnosis (ICD 10 Codes): Weakness R53.1, Z74.1 Need for assistance with personal care. Has the Physician been added for Co-signature?: Yes
--- NOTE | 2022-12-06 12:25 | DCSUM ---
Admission Date Admission Date: 12/02/22 Discharge Date Discharge Date: 12/06/22 Admission Diagnosis Admission Diagnosis: 1. Acute symptomatic hyponatremia 2. Dehydration 3. Covid 19 - positive 12/02 Discharge Diagnosis Discharge Diagnosis: 1. Acute symptomatic hyponatremia - Resolved 2. Acute hypoxic respiratory failure in setting of Covid 19, improved 3. Covid 19 4. Dehydration - Resolved 5. Weakness and debility 6. Chronic biliary cirrhosis 7. Hypertension 8. Hypothyroidism 9. GERD Hospital Provider Hospital Provider: BRETT KRAMER PA-C, [facility] Primary Care Physician Primary Care Physician: SANTIAGO VERMA MD Summary of History and Physical Summary of History and Physical: Patient is a 77 year old female with pmhx of biliary cirrhosis with chronically elevated liver enzymes, hypertension, copd, hyperlipidemia, osteoporosis, hypothyroidism, gerd who presented to the ER for weakness. Patient states that she had fallen at home, EMS came for lift assist. She didn't have an injury so she declined transport. Then last night she was unable to get into her bed so she just laid on her hardwood floor all night. She urinated on herself because she couldn't get to the bathroom. She was finally able to get to her phone to call for EMS. She denies cp, sob, n/v/d. No history of covid. Not covid vaccinated. In ER she had a temp of 100.3, CXR negative, but covid positive. Na 129, BUN elevated. Alk phos elevated from her baseline. Patient saturation in the 90s. She was given fluids. On my evaluation, patient states she has no pain worse than usual, just feels very weak. But then admits that she hurts all over in her muscles from sleeping on the floor. Hospital Course Subjective: Patient was treated with normal saline fluids and her hyponatremia and dehydration resolved. Her CPK was mildly elevated likely due to her lying in the floor all night. It improved with fluids. She continued to complain of right rib pain and right hip pain. She has had chronic right hip pain for which she takes Percocet. X-rays of right ribs and pelvis were done with no acute findings. Regarding her COVID her chest x-ray showed some signs of pneumonia thought to be likely COVID-pneumonia. She was mildly hypoxic especially when sleeping. Underlying COPD and CIRO could be contributing. However we went ahead and started her on IV dexamethasone 6 mg daily due to the hypoxia. She has since been on and off 1 to 2 L of oxygen as needed, she often will not keep it on. She has had no specific events during her stay. Discharge delayed due to awaiting placement to a senior care for acute rehab. Patient felt to be too weak to be at home by herself especially while under isolation and she is a fall risk. Patient is agreeable to rehab. Daughter is aware as well. Her blood pressure fluctuated during her stay but was mostly elevated. Amlodipine 5 mg daily was added. Her metoprolol was cut down to 12 and half milligrams daily due to borderline bradycardia of the low 60s and upper 50s. Appearance: No Apparent Distress, Alert, Well-appearing and Well-nourished HEENT: MMM and Supple CVS: No Murmur Abdomen: Soft, Non-Tender and No Distention Respiratory: No Accessory Muscle Use Extremities: No Edema Vital Signs: Most Recent Vital Signs Temperature 96.9 F L 12/06/22 05:01 Temperature Source Oral 12/06/22 05:01 Temperature Source Infrared 12/02/22 10:12 Pulse Rate 59 L 12/06/22 11:20 Respiratory Rate 20 12/06/22 11:20 Blood Pressure 92/48 L 12/06/22 11:20 Blood Pressure Mean 62 12/06/22 11:20 Blood Pressure Left Arm 152/66 12/02/22 13:39 Blood Pressure Location Left Arm 12/06/22 11:20 Blood Pressure Position Supine 12/06/22 11:20 O2 Sat by Pulse Oximetry 92 L 12/06/22 11:20 Oxygen Delivery Method Nasal Cannula 12/06/22 11:20 Oxygen Flow Rate 2 12/06/22 11:20 Height 5 ft 1 in 12/02/22 13:39 Weight 97 lb 12/02/22 13:39 Telemetry Type Bedside Monitor 12/06/22 07:00 Telemetry Monitoring Continues 12/06/22 07:00 Telemetry Heart Rate 78 12/06/22 07:00 Telemetry SPO2 88 L 12/06/22 07:00 EKG CA Interval 0.14 12/06/22 07:00 EKG QRS Interval 0.08 12/06/22 07:00 EKG QT Interval 0.39 12/04/22 01:00 Telemetry Strip Reading SR 12/06/22 07:00 Pulse Oximetry Type Bedside Monitor 12/06/22 07:00 Pulse Oximetry Monitoring Continues 12/06/22 07:00 Imaging: EXAM: CHEST, SINGLE VIEW HISTORY: Generalized weakness COMPARISON: 02/03/2020 FINDINGS / IMPRESSION: Cardiomediastinal contours appear stable. Right lung as well aerated. The infiltrate at the left lung base. This may represent atelectasis and/or pneumonia. Small left pleural effusion. No pneumothorax. EXAM: UNILATERAL RIGHT RIBS 12/04/2022 HISTORY: Fall COMPARISON: 12/02/2022 FINDINGS / IMPRESSION: Cardiomediastinal contours appear stable. The right lung appears well aerated. The osseous structures appear intact. There is no displaced rib fracture. EXAM: PELVIS AND BILATERAL HIPS RADIOGRAPH. HISTORY: Pelvic pain and bilateral hip pain. TECHNIQUE: Five views. Frontal pelvis. Frontal and lateral right hip. Frontal and lateral left hip. COMPARISON: None. FINDINGS: Diffuse osteopenia is identified. There is no fracture or dislocation. The soft tissues are normal. Age-related degerative changes are noted. There is no lytic or blastic lesion. There is no radiopaque foreign body. IMPRESSION: Osteopenia and age-related degenerative changes are identified. No acute fracture or dislocation. Lab Results Last 24 Hours: 12/06/22 05:05 WBC 7.55 RBC 4.47 Hgb 14.5 Hct 44.1 D MCV 98.7 MCH 32.4 H MCHC 32.9 RDW Coeff of Ervin 13.6 Plt Count 133 L Immature Gran % (Auto) 1.3 Neut % (Auto) 76.8 H Lymph % (Auto) 16.3 [place] % (Auto) 5.6 Eos % (Auto) 0.0 Baso % (Auto) 0.0 Neut # (Auto) 5.8 Lymph # (Auto) 1.2 [place] # (Auto) 0.4 Eos # (Auto) 0.0 Baso # (Auto) 0.0 Immature Gran # (Auto) 0.1 Sodium 138.1 Potassium 3.93 Chloride 101.2 Carbon Dioxide 32.2 H D Anion Gap 8.63 BUN 15.0 Creatinine 0.61 Estimated GFR (MDRD) 95.00 BUN/Creatinine Ratio 24.59 Glucose 85.2 Calcium 9.17 Total Bilirubin 0.76 AST 139.4 H D ALT 81.5 H D Alkaline Phosphatase 855.5 H D Total Protein 7.53 Albumin 3.96 Globulin 3.57 Albumin/Globulin Ratio 1.10 Discharge Instructions Discharge Planning: Discharge Planning > [address] Emmanuel Verma. Discharge Medications: Medications at Discharge (Home Meds & RX) levothyroxine 50 mcg capsule (Tirosint) 50 mcg PO DAILY #90 caps 07/25/22 metoprolol tartrate 50 mg tablet 50 mg PO DAILY #90 tabs 07/25/22 omeprazole 40 mg capsule,delayed release 40 mg PO QDAY #90 caps 07/25/22 ursodiol 500 mg tablet 500 mg PO DAILY #90 tabs 07/25/22 gabapentin 300 mg capsule 300 mg PO DAILY 12/02/22 hydrocodone 10 mg-acetaminophen 325 mg tablet 1 tab PO BID 12/02/22 Discharge Plan Discharge Discharge Orders: Discharge Patient (ONCE); Ordered 12/06/22 Ordered By: BRETT KRAMER Activity Restrictions/Additional Instructions: DISCHARGE TO LONG-TERM FOR REHAB DX: HYPONATREMIA, WEAKNESS, COVID ACTIVITY: PT/OT DIET: HEART HEALTHY COVID PRECAUTIONS, POSITIVE TEST 12/02/22 Patient Disposition: TRANSFER SNF Prescriptions: New ipratropium-albuterol 0.5 mg-3 mg(2.5 mg base)/3 mL Solution For Nebulization 3 ml NEB RTQ6H PRN (Reason: shortness of breath or wheezing) Qty: 90 0RF amlodipine 5 mg Tablet 5 mg PO BEDTIME Qty: 14 0RF gabapentin 300 mg Capsule 300 mg PO BID Qty: 30 0RF dexamethasone 6 mg tablet 6 mg PO DAILY 5 Days Qty: 5 0RF metoprolol succinate 25 mg tablet extended release 24 hr 12.5 mg PO DAILY Qty: 14 0RF Continued levothyroxine [Tirosint] 50 mcg capsule 50 mcg PO DAILY Qty: 90 1RF omeprazole 40 mg capsule,delayed release(DR/EC) 40 mg PO QDAY Qty: 90 1RF ursodiol 500 mg tablet 500 mg PO DAILY Qty: 90 1RF hydrocodone-acetaminophen 10-325 mg tablet 1 tab PO BID Qty: 14 0RF Discontinued metoprolol tartrate 50 mg tablet 50 mg PO DAILY Qty: 90 1RF gabapentin 300 mg capsule 300 mg PO DAILY Did you review [place] [employer] for ALL controlled substances?: Yes Discussed opioids are addictive and Narcan is available by prescription or from pharmacy.: No Condition: Stable
[2022-12-06 14:11] VITALS: BP 119/53; PULSE 65; RESP 21; TEMP 97.8
== END 2022-12-06 15:24 | DRG 640 ==
LOC: ED 10:11 → SCU 13:05
PROVIDERS: ADMIT Hospitalist; ATTEND Physician Assistant
DX: F17.210 Nicotine dependence, cigarettes, uncomplicated; J44.1 Chronic obstructive pulmonary disease with (acute) exacerbation; E87.1 Hypo-osmolality and hyponatremia; E86.9 Volume depletion, unspecified; R74.8 Abnormal levels of other serum enzymes; E78.5 Hyperlipidemia, unspecified; Z79.899 Other long term (current) drug therapy; E03.9 Hypothyroidism, unspecified; R74.01 Elevation of levels of liver transaminase levels; U07.1 COVID-19; E86.0 Dehydration; W19.XXXA Unspecified fall, initial encounter; K21.9 Gastro-esophageal reflux disease without esophagitis; K74.5 Biliary cirrhosis, unspecified; M19.90 Unspecified osteoarthritis, unspecified site; R29.6 Repeated falls; J96.91 Respiratory failure, unspecified with hypoxia; G89.29 Other chronic pain; M25.551 Pain in right hip; R07.82 Intercostal pain; I10 Essential (primary) hypertension